=== PATIENT | female | born 1990 | race Caucasian/White ===

== ENCOUNTER 2017-10-03 08:25 | Emergency (ER) | payer MEDICAID, SELFPAY ==
[2017-10-03 08:26] VITALS: BP 160/95; PULSE 84; RESP 28; TEMP 36.6; O2SAT 99; BMI 67.6
--- NOTE | 2017-10-03 08:35 | ED.VISSUMM ---
- ER Visit Summary Date of Service: 10/03/17 Chief Complaint: Abdominal pain History of Present Illness: The patient is a 26 F who presents with abdominal pain. Patient states that she started with pain about an hour ago. It sharp and cramping in the right lower quadrant. It does not radiate. She has had nausea without vomiting. No diarrhea or constipation. Denies any urinary symptoms. She denies any history of fevers. She has never had any abdominal surgeries in the past. She took nothing for this morning. Physical Examination: Vital signs reviewed. Patient's BMI is 67. HEENT exam unremarkable. Heart is regular rate and rhythm without murmurs. Lungs are clear to auscultation. Abdomen is soft with tenderness in the epigastric and right lower quadrant areas. Extremities reveal no edema. Skin exam normal. Neurologic exam normal. Test Results: White blood cell count normal. Hemoglobin 11.8. Potassium 3.4. Urinalysis reveals trace blood. Patient states that she was just recently finished her menstrual cycle. CAT scan without contrast reveals nonvisualization of the appendix. She has mild liver steatosis Emergency Department Course and Treatment: Patient was given morphine and Zofran with resolution of her pain. CAT scan revealed nonvisualization of her appendix but she has no signs of edema or inflammation in that area of her abdomen. Patient will be discharged home. She was given instructions on when to return as well as possibility of early appendicitis. She wishes to go home at this time. I will give her Bentyl and Zofran she will need follow-up with her PCP for reevaluation Treatment Plan: [] Disposition: Discharge Impression: Abdominal pain This note was generated with [employer] dictation software. It may contain incorrect words, spelling, and punctuation that were not noted in review of the chart prior to signing ED Disposition - Plan for ED Patient: Chief Complaint: Abd Pain
[2017-10-03] MEDS: Morphine 4 MG/ML Syringe IV (08:45)
[2017-10-03] MEDS: Ondansetron 4 MG/2 ML Vial IV (08:45)
[2017-10-03 09:01] LABS: Color, Urine Yellow (Yellow); Glucose, Dipstick Normal (Normal); Ketone-Dipstick 5 mg/dl (Negative); Leukocyte Esterase-Dipstick 25 /ul (Negative); Nitrite-Dipstick Negative (Negative); Occult Blood-Urine 250 /ul (Negative); Protein-Dipstick 30 mg/dl (Negative); Specific Gravity, Urine 1.025 (1.002-1.030); Urine Bilirubin Dipstick Negative (Negative); Urine Clarity Sl. Cloudy (Clear); Urine Urobilinogen Normal (Normal)
[2017-10-03 09:01] LABS: Absolute Lymphocyte Count 1.89 X10^3/ul (0.83-4.51); Absolute Neutrophil Count 2.5 X10^3/uL (2.0-7.7); Basophil# 0.03 X10^3/uL; Basophil% 0.6 % (0-1); Eosinophil# 0.07 X10^3/uL; Eosinophils% 1.4 % (0-5); Hemoglobin 11.8 g/dl (12.0-15.0); Lymphocyte # 1.89 X10^3/ul (4.0); Lymphocyte % 38.7 % (19-41); Mean Corp Hgb Conc 32.8 g/gl (32-36); Mean Corpuscular Hgb 30.8 pg (27.0-32.0); Monocyte# 0.42 X10^3/uL; Monocyte% 8.6 % (0-10); Neutrophil # 2.48 X10^3/uL (2.7-7.7); Neutrophil % 50.7 % (47-70); Platelet Count 285 K/mm3 (150-450); RBC Distribution Width CV 12.9 % (11.6-14.6); Red Blood Count 3.83 M/mm3 (4.2-5.4); White Blood Count 4.9 K/mm3 (4.4-11.0)
[2017-10-03 09:02] LABS: ALB/GLOB Ratio 0.8 RATIO (0.9-2.4); AST(SGOT) 19 U/L (15-37); Alanine Aminotransfer ALT/SGPT 33 U/L (13-56); Albumin, Serum 3.5 g/dL (3.2-5.0); Alkaline Phosphatase 66 U/L (45-117); Anion Gap 9 (5-15); BUN 9 mg/dL (7-18); BUN/Creat Ratio 12.5 RATIO (10-20); Calcium,Total 8.6 mg/dL (8.5-10.1); Chloride 106 mmol/L (98-107); Creatinine, Serum 0.72 mg/dL (0.55-1.02); EST Glomerular Filtration Rate 105 mL/min (>60); Est Glom Filt Rate - Afr Amer 127 mL/min (>60); Estimated Creatinine Clearance 121.54 ml/min; Globulin 4.3 g/dL (2.2-4.2); Glucose 97 mg/dL (74-106); Lipase 133 U/L (73-393); Potassium 3.4 mmol/L (3.5-5.1); Pregnancy, Serum, hCG Quali. NEGATIVE Negative (0-9 Nonpreg); Protein, Total 7.8 g/dL (6.4-8.2); Sodium Level 141 mmol/L (136-145)
[2017-10-03 09:04] LABS: POSITIVE COUNT NO; POSITIVE DIFFERENTIAL NO; POSITIVE MORPHOLOGY NO
--- NOTE | 2017-10-03 09:11 | CT_ITS ---
STUDY: CT ABDOMEN AND PELVIS WITHOUT CONTRAST REASON FOR EXAM: Female, 26 years old. RLQ PAIN STARTING TODAY. RADIATION DOSAGE (If Supplied By Facility): CTDIvol = ( 34.45 ) mGy, DLP = ( 1971.26 ) mGycm TECHNIQUE: Transaxial images were obtained from the dome of the diaphragm to the symphysis pubis without oral contrast, and without intravenous contrast. Sagittal and coronal images were reconstructed. Individualized dose optimization techniques were used for this CT. COMPARISON: None. FINDINGS: The visualized lung bases are unremarkable. The visualized portions of the heart are within normal limits. There is decreased attenuation of the liver consistent with steatosis. Normal gallbladder and extrahepatic biliary system. Normal spleen. Normal pancreas. Normal bilateral adrenal glands. Normal right kidney. Normal left kidney. Normal visualized stomach. Normal small intestine. Normal colon. There is non-visualization of the appendix. Normal abdominal aorta. Normal inferior vena cava. Normal retroperitoneum. Normal urinary bladder. There is a small umbilical hernia containing fat. There are diffuse degenerative changes of the visualized lumbar spine. CT/Abdomen/Pelvis without Cont IMPRESSION: Nonvisualization of the appendix. Mild liver steatosis. Electronically Signed: Escobar Thompson MD at 9:44 EDT Tel , Service support ,
[2017-10-03 09:18] LABS: Bacteria 1+ /hpf (None Seen); Mucous, Urine 1+ /hpf (<or=2+); Red Blood Cells-Urine 5-10 SEEN /hpf (0-5); Squamous Epithelial Cells - UA 5-10 SEEN /hpf (5-10); White Blood Cells 0-5 SEEN /hpf (0-5)
--- NOTE | 2017-10-03 10:05 | ED.DEP ---
ED Disposition - Plan for ED Patient: Disposition: Home or Assisted Living Chief Complaint: Abd Pain Instructions: ED Abdominal Pain Unkn Cause Prescriptions: Ondansetron [Zofran Odt] 4 mg PO Q8H PRN PRN #10 tab PRN Reason: Nausea Dicyclomine HCl [Bentyl] 20 mg PO TIDAC #20 cap Referrals: Care Physician,No Primary [Primary Care Provider] -
[2017-10-03 10:23] VITALS: BP 150/90; PULSE 84; RESP 20; O2SAT 96
== END 2017-10-03 10:28 | disposition home or self-care (01) ==
PROVIDERS: Emergency Provider Emergency Medicine
DX: R10.13 Epigastric pain (principal); R10.31 Right lower quadrant pain
CPT/HCPCS: 74176; 80053; 81001; 83690; 84703; 85025; 96374; 96375; 99283; A4216; J2405

== ENCOUNTER 2018-02-02 17:40 | Emergency (ER) | payer MEDICAID, SELFPAY ==
[2018-02-02 17:40] VITALS: BP 167/97; PULSE 115; RESP 20; TEMP 36.1; O2SAT 98; BMI 62.6
--- NOTE | 2018-02-02 17:50 | RAD_ITS ---
STUDY: X-RAY - LEFT ANKLE REASON FOR EXAM: Female, 27 years old. Twisted ankle. TECHNIQUE: view(s) of the ankle. COMPARISON: None. FINDINGS: Normal visualized distal tibia and fibula. Normal medial and lateral malleoli. Normal tibiotalar articulation and ankle mortise. Normal visualized talus and calcaneus. The visualized subtalar, talonavicular, calcaneocuboid and tarsal articulations are normal. There is mild soft tissue swelling. RAD/Ankle min 3 Views IMPRESSION: Soft tissue swelling, otherwise negative ankle. Electronically Signed: Aleksandra Amaya MD at 18:53 EST Tel , Service support ,
--- NOTE | 2018-02-02 18:30 | ED.VISSUMM ---
- ER Visit Summary Date of Service: 02/02/18 Chief Complaint: Left ankle injury History of Present Illness: The patient is a 27 F presents to the emergency department left ankle injury. Patient states she was at work and twisted her ankle about a week ago. She states that it seemed like the pain had improved. Today, she was back at work and the ankle gave out twice. She has had increasing swelling over the lateral ankle. She denies any new trauma. She did take ibuprofen with some improvement. Physical Examination: Exam relatively unremarkable. Patient has tenderness over the lateral malleolus. Florence testing is negative. Pulses are normal. She has no pain at the proximal fibula. There is no pain in the foot. Test Results: [] Emergency Department Course and Treatment: Plain films were obtained of the ankle. There is no evidence of fracture or dislocation. I do feel that her symptoms are secondary to sprain. Patient was placed in an Aircast. She will given anti-inflammatories. She has decided to not go through with workers comp. She will be given outpatient referral for a new primary care. She will be discharged home. Treatment Plan: [] Disposition: Discharge Impression: Left ankle sprain This note was generated with [employer] dictation software. It may contain incorrect words, spelling, and punctuation that were not noted in review of the chart prior to signing ED Disposition - Plan for ED Patient: Chief Complaint: Lower Extremity Injury Instructions: ED Sprain Ankle W X Ray Prescriptions: Naproxen [Naprosyn] 500 mg PO BID PRN #20 tab Referrals: Peña Smalls DO [NON CLINICAL AFFILIATE] -
--- NOTE | 2018-02-02 18:46 | ED.RN ---
pt started as workers comp and declined to follow through. registration aware
[2018-02-02 18:58] VITALS: PULSE 120; RESP 18; O2SAT 97
== END 2018-02-02 18:59 | disposition home or self-care (01) ==
PROVIDERS: Emergency Provider Emergency Medicine
DX: S93.402A Sprain of unspecified ligament of left ankle, initial encounter (principal); E66.9 Obesity, unspecified; X50.1XXA Overexertion from prolonged static or awkward postures, initial encounter; Y93.89 Activity, other specified; Y92.89 Other specified places as the place of occurrence of the external cause; Y99.0 Civilian activity done for income or pay
CPT/HCPCS: 73610; 99282

== ENCOUNTER 2018-03-26 15:18 | Emergency (ER) | payer MEDICAID, SELFPAY ==
[2018-03-26 15:19] VITALS: BP 143/100; PULSE 92; RESP 14; TEMP 36.5; O2SAT 99; BMI 62.6
--- NOTE | 2018-03-26 15:34 | ED.VISSUMM ---
- ER Visit Summary Date of Service: 03/26/18 Chief Complaint: Left ankle injury History of Present Illness: The patient is a 27 F presenting with left ankle injury. Patient slipped while walking into [facility] and twisted her left ankle. She did not hit her head or lose consciousness. She has pain to her left ankle. She denies other injuries. Physical Examination: Vitals are stable. Patient is afebrile. Alert no acute distress. HEENT exam is unremarkable. Neck is nontender Lungs are clear and equal bilaterally. Heart is regular rate and rhythm. Extremities left ankle swelling with lateral tenderness. No proximal fibula tenderness. No fifth metatarsal tenderness. No Achilles tendon tenderness. Skin is warm and dry. No focal neurologic deficit. Remainder of exam is unremarkable. Emergency Department Course and Treatment: Patient was given fentanyl per EMS. Left ankle x-ray shows soft tissue swelling. She is given an Aircast. She is advised to ice and elevate. Advised to follow-up with her primary care physician. Advised return to ED if worsening complaints. Disposition: Discharge Impression: Left ankle sprain This note was generated with [employer] dictation software. It may contain incorrect words, spelling, and punctuation that were not noted in review of the chart prior to signing ED Disposition - Plan for ED Patient: Disposition: Home or Assisted Living Chief Complaint: Lower Extremity Injury Instructions: ED Sprain Ankle W X Ray Prescriptions: RX: Naproxen [Naprosyn] 500 mg PO BID PRN #20 tablet Referrals: Navjot Sanchez III, MD [STAFF PHYSICIAN] -
--- NOTE | 2018-03-26 15:50 | RAD_ITS ---
STUDY: X-RAY - LEFT ANKLE REASON FOR EXAM: Female, 27 years old. Pain following a fall. TECHNIQUE: 3 view(s) of the ankle. COMPARISON: None. FINDINGS: Normal visualized distal tibia and fibula. Normal medial and lateral malleoli. Normal tibiotalar articulation and ankle mortise. Normal visualized talus and calcaneus. Questionable old avulsion of the posterior dorsal aspect of the tarsal navicular bone. The visualized subtalar, talonavicular, calcaneocuboid and tarsal articulations are normal. Diffuse soft tissue swelling. RAD/Ankle min 3 Views IMPRESSION: Diffuse soft tissue swelling. Electronically Signed: Heron Bettencourt MD at 16:02 EST , Service support ,
--- NOTE | 2018-03-26 16:12 | ED.DEP ---
ED Disposition - Plan for ED Patient: Chief Complaint: Lower Extremity Injury Instructions: ED Sprain Ankle W X Ray Prescriptions: Naproxen [Naprosyn] 500 mg PO BID PRN #20 tablet Referrals: Navjot Sanchez III, MD [STAFF PHYSICIAN] -
[2018-03-26] MEDS: HYDROcodone Bitartrate/Apap 5/325 Tablet PO (16:33)
== END 2018-03-26 16:54 | disposition home or self-care (01) ==
LOC: ED 16:27
PROVIDERS: Emergency Provider Emergency Medicine
DX: S93.492A Sprain of other ligament of left ankle, initial encounter (principal); X50.1XXA Overexertion from prolonged static or awkward postures, initial encounter; Y93.01 Activity, walking, marching and hiking; Y92.481 Parking lot as the place of occurrence of the external cause; Y99.8 Other external cause status
CPT/HCPCS: 73610; 99285

== ENCOUNTER → 2018-05-13 16:13 | Outpatient (CLI) | payer OTHER, SELFPAY ==
--- NOTE | 2018-05-13 16:19 | MRI_ITS ---
HISTORY: ANKLE SPRAIN C/O PAIN LATERALLYinjury 1 1/2 months ago TECHNIQUE: Multiplanar and multisequence MR images of the left ankle. IV Contrast dosage and agent: COMPARISON: Left ankle x-ray 03/26/2018 FINDINGS: The peroneal and posterior tibial tendons are intact. Small tendon sheath fluid collections in the physiologic range of the posterior flexor and anterior extensor tendons. No tenosynovitis. Normal Achilles. The tibiofibular, talofibular, and deltoid ligaments appear intact. No fracture, avascular necrosis, or marrow edema. Small benign-appearing bone island of the talus. The talar dome is intact. No loose body or osteochondral defects. No joint effusion. The subtalar joint is preserved. No subluxation or widening of the ankle mortise. Generalized and nonspecific superficial edema of the ankle and lower leg. Superficial edema is more pronounced laterally MRI/Lower Ext Joint Only (Routine) IMPRESSION: 1. Generalized and nonspecific superficial edema of the left ankle and lower leg. Venous stasis disease would be included in the differential. 2. Otherwise negative exam. No tendinopathy or ligamentous injury seen. No bony abnormality. at 0314 Reported and signed by: Krishna Singh MD Electronically Signed: Krishna Singh, at 3:13 EDT Tel , Service support ,
--- NOTE | 2018-05-13 16:20 | MRI_ITS ---
HISTORY: LEFT FOOT SPRAIN C/O PAIN LATERALLYinjury 1 1/2 months ago TECHNIQUE: Multiplanar and multisequence MR images of the left foot. IV Contrast dosage and agent: None COMPARISON: None FINDINGS: No fracture, marrow edema, or avascular necrosis. Several small benign-appearing bone islands involving the talus and navicular. Joint spaces appear preserved. No tendinopathy or tenosynovitis. Normal Achilles and plantar fascia. The forefoot is unremarkable. No Busch neuroma. Nonspecific superficial soft tissue swelling of left ankle. MRI/Lower Ext/No Jt/w/o IMPRESSION: 1. Nonspecific superficial soft tissue swelling of the left ankle. Otherwise negative exam. No bony abnormality or tendinopathy. at 0323 Reported and signed by: Krishna Singh MD Electronically Signed: Krishna Singh, at 3:21 EDT Tel , Service support ,
== END ==
PROVIDERS: Referring Provider Family Medicine; Visit Provider Family Medicine
DX: S93.402A Sprain of unspecified ligament of left ankle, initial encounter (principal); S93.602A Unspecified sprain of left foot, initial encounter
CPT/HCPCS: 73718; 73721

== ENCOUNTER 2021-02-16 13:44 | Emergency (ER) | payer MEDICAID, SELFPAY ==
[2021-02-16 13:45] VITALS: BP 128/79; PULSE 101; RESP 24; TEMP 35.8; O2SAT 93; BMI 84.7
[2021-02-16 13:55] VITALS: O2SAT 93
--- NOTE | 2021-02-16 14:10 | EDS_ITS ---
HPI HPI - URI History of Present Illness Chief Complaint: Shortness of Breath Detail of Chief Complaint: Cough Informant: patient Onset/Context/Timing Onset: Weeks Context: Gradual Onset Timing: Continuous Current Severity: Mild Maximum Severity: Mild Associated Symptoms Associated Symptoms: Positive for Nonproductive cough Narrative Narrative: 30-year-old female past medical history of morbid obesity. Says she has had a nonproductive cough for the last 1-1/2 weeks. Initially had subjective fever and chills but has since resolved. Has had some mild loose stools. She is unvaccinated. Prior similar symptoms: No Recent Illness/Hospitalization: No ROS ROS ED ROS Narrative Cough. Fever and chills resolved. Loose stools. Review of Systems ROS Unobtainable: Denies due to encephalopathy Constitutional Constitutional ED: Reports chills, fever(s) and subjective Eyes Eyes: Denies change in vision ENT ENT ED: Denies ear pain Cardiovascular Cardiovascular: Denies chest pain Respiratory/Chest Respiratory/Chest: Reports cough and dyspnea Gastrointestinal Gastrointestinal: Reports diarrhea; Denies abdominal pain, nausea or vomiting Genitourinary Genitourinary ED: Denies dysuria Musculoskeletal Musculoskeletal: Denies myalgias Integumentary Denies rash Neurologic Neurologic: Denies headache(s) Psychiatric Psychiatric: Denies depression Endocrine Endocrinology: Denies polyuria Hematologic/Lymphatic Hematologic/Lymphatic: Denies easy bruising Allergic/Immunologic Allergic/Immunologic ED: Denies urticaria PFSH PFSH Home Medications naproxen 500 mg PO BID PRN #20 tab 02/02/18 [Rx Last Taken Unknown] naproxen 500 mg PO BID PRN #20 tab 03/26/18 [Rx Last Taken Unknown] Allergy/AdvReac Type Severity Reaction Status Date / Time No Known Allergies Allergy Verified 02/16/21 13:44 Social History Smoking Status: Never smoker EXAM Physical Exam Narrative Exam Narrative: 22-year-old female no acute distress vital signs stable afebrile. Pulse ox 93% on room air no hypoxia. HEENT exam unremarkable. Posterior pharynx moist and pink. Neck nontender no lymphadenopathy. Lungs clear to auscultation bilaterally. Heart regular rhythm no murmur. Abdomen morbidly obese with soft nontender normal bowel sounds no peritoneal signs. Moving all 4 extremities. Calves nontender without edema. Const Vital Signs: 02/16/21 13:45 02/16/21 14:37 Temperature 96.5 F L Temperature Source Oral Pulse Rate 101 H Respiratory Rate 24 H Respiratory Effort Short of Breath Respiratory Pattern Normal Blood Pressure 128/79 H Blood Pressure Mean 95 Pulse Ox 93 Oxygen Delivery Method Room Air Room Air Positive well nourished, well developed and obese; Negative for cachectic or contractures General Appearance ED: well developed and NAD; Negative for cachectic, co ntractures, cyanotic, diaphoretic or pallor Nutritional Appearance: obese; Negative for cachectic HEENT Reports moist mucous membranes normocephalic and atraumatic; Negative for scalp tenderness Face and Sinus: Negative for sinus tenderness, maxillary instability or facial tenderness External Ear: external ears normal Eyes PERRL and EOMs intact bilaterally General Eye ED: Negative for pale conjunctiva or scleral icterus Neck no lymphadenopathy, supple, no meningeal signs and no JVD General: Negative for anterior neck swelling or lymphadenopathy Resp normal respiratory effort and clear to auscultation bilaterally Auscultation: Negative for rales, rhonchi or wheezes Cardio S1 normal heart sound, S2 normal heart sound and no murmurs Rate: regular rate Rhythm: regular rhythm GI non-tender, non-distended and no masses Inspection: Negative for abdominal distention Auscultation: normoactive bowel sounds; Negative for hyperactive bowel sounds Palpation: soft; Negative for tender or guarding Back/Spine no CVA tenderness and normal ROM General Back: Negative for CVA tenderness Cervical Spine: Negative for cervical spine tenderness Thoracic Spine / Upper Back: Negative for thoracic spinal tenderness Extremity normal to inspection and full ROM General Extremety ED: Negative for cyanosis or tenderness General Extremity: Negative for cyanosis Neuro oriented x3 Sensorium / Orientation: alert, oriented to person, oriented to place and oriented to time; Negative for orientation impaired, lethargic or stuporous Motor Exam: strength 5/5 throughout Psych mental status grossly normal Mood & Affect: Negative for depressed or tearful Skin General Skin Exam: Negative for jaundice or pallor Lesions: no lesions Rashes: no rashes MDM MDM MDM Narrative Medical decision making narrative: 30-year-old morbidly obese female with a 1- 1/2 weeks of a cough. Chest x-ray and Covid test being obtained. Clinically she does not look septic or toxic. Her vital signs are stable and she is not hypoxic. Repeat exam patient is doing well at 5:07 PM. Exam is unchanged. We went over her chest x-ray and Covid test being negative. She will be discharged home with outpatient follow-up as needed. Return if worse Lab Data Attestation: I reviewed the patient's lab results. Labs: Rapid Covid antigen is negative. Chest x-ray shows chronic changes no acute process. Radiography Diagnostic Testing: Clinical Impression(s) from Imaging Studies Chest X-Ray 02/16/21 14:20 IMPRESSION: Borderline cardiomegaly. Electronically Signed: Heron Bettencourt MD at 14:41 EST , Service support , Chest x-ray, portable, single view interpreted by myself the radiologist shows no acute abnormality. No infiltrates. No Covid pneumonitis. No bacterial pneumonia. Discharge Plan Triage Chief Complaint: Shortness of Breath ED Provider: Alex Grijalva Dx/Rx/DC Orders Clinical Impression: Viral URI Instructions: ED URI, Viral, No Abx (Adult) Prescriptions: No Action naproxen 500 MG tablet 500 mg PO BID PRN Qty: 20 RF: 0 naproxen 500 MG tablet 500 mg PO BID PRN Qty: 20 RF: 0 Primary Care Provider: Care Physician,No Primary Referrals: Fabian Pagan MD [STAFF PHYSICIAN] - 1 Week if not improving Care Physician,No Primary [Primary Care Provider] - Activity Restrictions/Additional Instructions: Your chest x-ray was unremarkable. Your Covid test was negative. Plenty of fluids and rest. Follow-up with your doctor or primary care physician if not improving. Disposition Disposition: Home, Self Care
--- NOTE | 2021-02-16 14:20 | RAD_ITS ---
STUDY: X-RAY CHEST REASON FOR EXAM: Female, 30 years old. Severe cough. TECHNIQUE: Single AP portable view of the chest. COMPARISON: None. FINDINGS: The lungs are clear and expanded. There is no demonstrated pleural abnormality. There is borderline cardiomegaly. Normal mediastinum and jorge. Normal visualized pulmonary arteries. Normal visualized aortic arch and descending thoracic aorta. Normal visualized thoracic spine. Normal visualized ribs, clavicles, and shoulders. There is no demonstrated abnormality of the visualized soft tissue structures of the upper abdomen. RAD/Chest 1 View (Portable) IMPRESSION: Borderline cardiomegaly. Electronically Signed: Heron Bettencourt MD at 14:41 EST , Service support ,
[2021-02-16 14:37] VITALS: O2SAT 96
[2021-02-16 17:16] VITALS: PULSE 98; RESP 19; O2SAT 94
== END 2021-02-16 17:18 | disposition home or self-care (01) ==
PROVIDERS: Emergency Provider Emergency Medicine
DX: J06.9 Acute upper respiratory infection, unspecified (principal); E66.01 Morbid (severe) obesity due to excess calories; Z68.45 Body mass index [BMI] 70 or greater, adult; Z28.3 Underimmunization status
CPT/HCPCS: 71045; 87426; 99282

== ENCOUNTER 2024-01-10 16:49 | Emergency (ER) | payer MEDICAID, SELFPAY ==
[2024-01-10 16:50] VITALS: BP 113/95; PULSE 110; RESP 20; TEMP 36.6; O2SAT 96
[2024-01-10 16:53] VITALS: BP 113/95; PULSE 110; RESP 20; TEMP 36.6; O2SAT 96
[2024-01-10] MEDS: Cephalexin 250 MG Capsule 500 MG PO (17:51)
[2024-01-10 18:05] LABS: Bedside Glucose 81 mg/dL (74-106)
[2024-01-10 18:36] VITALS: BP 122/85; PULSE 105; RESP 18; TEMP 36.2; O2SAT 100
== END 2024-01-10 18:51 | disposition home or self-care (01) ==
PROVIDERS: Emergency Provider Emergency Medicine; Visit Provider Emergency Medicine
DX: L03.115 Cellulitis of right lower limb (principal); E66.9 Obesity, unspecified
CPT/HCPCS: 82962; 99282

== ENCOUNTER 2024-01-22 13:38 | Outpatient (RCR) | payer MEDICAID, SELFPAY ==
[2024-01-22 14:03] VITALS: BP 124/86; PULSE 112; RESP 18; TEMP 36.2; BMI 78.2
[2024-01-22 14:27] VITALS: BMI 78.2
--- NOTE | 2024-01-22 16:56 | HP.PCM_ITS ---
History of Present Illness Date of Service: 01/22/24 Chief Complaint: Venous ulceration, cellulitis, chronic venous insufficiency, venous stasis dermatitis, pitting edema, lymphedema - right lower extremity History of Wound: This is a morbidly obese 33-year-old female who presents with a venous ulceration and cellulitis involving her right lower extremity. The patient also suffers from chronic venous insufficiency, and venous stasis dermatitis in the right lower extremity. She also has pitting edema and lymphedema in her lower extremities bilaterally. According to the patient, she has had the ulceration and dermatitic changes in her right lower extremity for approximately 3 months. Only recently did she seek medical attention. She was seen and evaluated in the [facility] Emergency Department on January 10, 2024, where she was placed on Keflex 500 mg p.o. twice daily x 10 days in treatment for right lower extremity cellulitis. She is in the final phase of her antibiotic course. The patient was evaluated at the [facility] on January 17, 2024, where she was referred for definitive management at the [facility]. At her visit to the [facility], betadine was applied to her right lower extremity ulceration, in addition to an Dwight wrap. The patient is morbidly obese, with a BMI of 78.2. 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 She lives alone, with very few resources. She does not have a bed, and sleeps in a recliner. She states that her recliner is broken, and that her legs cannot be elevated. The patient lives alone, and does not have family or friends to assist her with her daily needs. She denies a history of significant medical problems such as myocardial infarction, congestive heart failure, diabetes mellitus, pulmonary disease, renal disease, thyroid disease, and cerebrovascular disease. She denies prior surgical procedures. She does not use tobacco products. [facility] Medical History Morbid obesity with BMI of 70 and over, adult Venous stasis dermatitis of right lower extremity Venous ulcer of right leg Cellulitis of right leg 1+ pitting edema Lymphedema of both lower extremities Bilateral lower extremity edema Home Medications ?Medication ?Instructions ?Recorded ?Last Taken ?Type naproxen 500 mg tablet 500 mg PO BID PRN #20 tabs 02/02/18 Unknown Rx cephalexin 500 mg capsule 500 mg PO Q6 #40 CAPSULES 01/10/24 Unknown Rx Allergy/AdvReac Type Severity Reaction Status Date / Time No Known Allergies Allergy Verified 02/16/21 13:44 no surgical history Social History Smoking Status: Never smoker Vital Signs Vital Signs Vital Signs: 01/22/24 14:03 Temperature 97.1 F L Temperature Source Temporal Pulse Rate 112 H Respiratory Rate 18 Blood Pressure 124/86 H Blood Pressure Mean 98 Blood Pressure Source Monitor Blood Pressure Position Sitting Blood Pressure Location Left Arm Weight Weight: 500 lb Body Mass Index (BMI) 78.2 Physical Exam Const alert, oriented x3, no apparent distress, no limitations and well nourished Constitutional Narrative: The patient is morbidly obese, with a BMI of 78.2 General Appearance: cooperative, comfortable, well kempt and well developed Orientation / Consciousness: awake, oriented to person, oriented to place and oriented to time Exam Limitations: no limitations HEENT normocephalic, head/scalp atraumatic and hearing grossly normal bilaterally Head and Scalp: normal to inspection, normocephalic and atraumatic Face and Sinus: normal facial exam Nose: external nose normal External Ear: external ears normal Eyes EOMs intact bilaterally General Eye: normal appearance of both eyes Neck full ROM Resp normal respiratory effort, normal air movement, no retractions and no use of ac cessory muscles Effort and Inspection: able to speak in complete sentences GI Inspection: pannus present Extremity no calf tenderness General Extremity: Negative for clubbing or cyanosis Skin Wound Narrative: Edema and lymphedema are noted in the lower extremities bilaterally. 1+ pitting edema is noted bilaterally. A resolving cellulitis appears in the distal right lower extremity, associated with diffuse venous stasis dermatitis and a large venous ulceration. These findings are noted in the supramalleolar area. A large area of sloughing epidermis is noted in the right supramalleolar area, as well as tayla ulceration, which is large and clustered. There is a large amount of nonviable and necrotic tissue in this area. The borders are irregular. The ulceration extends through all layers of the dermis and into the subcutaneous tissues primarily, though there are areas of more superficial ulceration. Mild callie-ulcer erythema is noted, consistent with a resolving cellulitis. Neuro oriented x3, CN's II-XII intact bilaterally, moves all extremities, no focal motor deficits and no sensory deficits noted Sensorium / Orientation: awake, alert, oriented to person, oriented to place and oriented to time Cranial Nerves: CN normal except as noted Speech: speech normal Psych Appearance: grossly normal and appropriate Attitude: calm Activity / Motor Behavior: appropriate eye contact Speech: normal speech Mood & Affect: euthymic mood Thought Process: normal thought process Thought Content: normal thought content Attention / Concentration: attention grossly intact Debridement Note Debridement Note Wound debrided: Distal right lower extremity venous ulceration Laterality: Right Type of Debridement: Excisional debridement Anesthesia Used: 5% Lidocaine Gel and Cetacaine Depth: Down to and including healthy tissue and in the subcutaneous layer Percentage of wound debrided: 100 Instrument Used: 5mm curette Tissue Removed: Epidermal slough, necrotic and nonviable tissue, bioburden Severity: Fat Layer Exposed Amount of bleeding with debridement: Mild Bleeding Controlled with: Compression and gauze Patient tolerated procedure: Patient tolerated procedure well Post-Debridement Measurements and Additional Note: Post-Debridement Measurements/Treatment - Nurse 1 - General Ulcer Assessment Start: 01/22/24 14:02 Freq: Status: Active Protocol: AILYN.ANIT Activity Type Activity Date Activity User E-sign Co-sign Detail Recorded Client Recorded Date Recorded By Document 01/22/24 14:03 ML [id number] 01/22/24 14:07 ML Document 01/22/24 14:27 ML [id number] 01/22/24 14:32 ML 01/22/24 01/22/24 14:03 14:27 - Today's Visit Information Type of service Initial Visit Arrival Mode Ambulatory,Cane Transfer Assistance None Patient Identification Verified (Name & Yes ) Patient Requires Transmission-Based No Precautions Height and Weight Height 5 ft 7 in Weight 500 lb Weight in Pounds 500.0 lbs Body Mass Index (BMI) 78.2 78.2 BMI Classification Obese Obese BSA - Tammy 2.98 Vital Signs Temperature (97.8 F-99.1 F) 97.1 F L Temperature Source Temporal Pulse Rate (60-100) 112 H Pulse Location Monitor Respiratory Rate (12-18) 18 Respiratory rate source Observation Blood Pressure (90/60-120/80) 124/86 H Blood Pressure Mean 98 Source Monitor Position Sitting Blood Pressure Location Left Arm Pain Scale: 0-10 Numeric Is Patient Pain Free? No No RLE -Description Burning -Intensity 7 -Duration (hours) Acute -Pain Behavior Withdrawal from Touch -Pain Aggravating Factors Exercise/ Activity -Alleviating Factors/Interventions None Lower Extremity Assessment/ Foot Assessment/ Toe Nail Assessment Right -Posterior Tibial Palpable Yes -Posterior Tibial Doppler Multiphasic -Dorsalis Pedis Palpable Yes -Dorsalis Pedis Doppler Multiphasic -Extremity Color Normal -Hair Growth on Legs Yes -Hair Growth on Toes No -Temperature of Extremity Warm -Capillary Refill Less than 3 Seconds -Dependent Rubor No -Blanched when Elevated No -Lipodermatosclerosis No -Other Deformity No -Prior Foot Ulcer No -Charcot Joint No -Prior Amputation No -Thick Yes -Discolored Yes -Deformed Yes -Improper Length & Hygeine No Left -Posterior Tibial Palpable Yes -Posterior Tibial Doppler Multiphasic -Dorsalis Pedis Palpable Yes -Dorsalis Pedis Doppler Multiphasic -Extremity Color Normal -Hair Growth on Legs Yes -Hair Growth on Toes No -Temperature of Extremity Warm -Capillary Refill Less than 3 Seconds -Dependent Rubor No -Blanched when Elevated No -Lipodermatosclerosis No -Other Deformity No -Prior Foot Ulcer No -Charcot Joint No -Prior Amputation No -Thick Yes -Discolored Yes -Deformed Yes -Improper Length & Hygeine No Neuropathy Assessment Feet - Top Side and Bottom <Entered> (a) Communication Assessment Preferred language [place] Loans Consultant Required No Able to Read Yes Able to Write Yes Communication Tools None Caregiver Communication Skills No Impairment Impairment Right Hearing Abillity Normal Left Hearing Abillity Normal Visual Assistive Devices Glasses Teaching Assessment Preferences Verbal,Written, Demonstration Barriers to Learning Unable to Comprehend Readiness To Learn Good Willingness to Engage in Self Management Low Activies Readiness to Engage in Self Management Low Activities Anxiety Level Anxious Cooperation Cooperative Perception Coherent Interest in Health Problem Asks Questions Education Importance Acknowledges Need Does Patient Smoke tobacco or other No substances Smoking Status Never smoker Is Patient Diabetic No Functional Assessment Recent Decline in Ability to Perform Denies Any Declines Assistive Device With Patient No Culture/Jew/Food Products Sales Representative Cultural/Jew Needs that may affect No Treatment Plan Would you allow our hospital waste paper hammermill operator to No meet you for the purpose of spiritual/ emotional support? Food Products Sales Representative to contact place of nondenominational No Teaching: Wound Center *Welcome to the Wound Center -Person Taught Patient -Teaching Method Discussion -Response to teaching Verbalize Understanding (a) 1 - + throughout WC - Nurse 1 - General Ulcer Measurement Start: 01/22/24 14:02 Freq: Status: Active Protocol: Activity Type Activity Date Activity User E-sign Co-sign Detail Recorded Client Recorded Date Recorded By Document 01/22/24 14:08 ML [id number] 01/22/24 14:18 ML Document 01/22/24 14:27 ML [id number] 01/22/24 14:32 ML 01/22/24 01/22/24 14:08 14:27 Wound Center Nurse 1 right lower leg circumferential -Current Size (cm) - Length 12 -Current Size (cm) - Width 27 -Current Size (cm) - Depth 0.1 -Total Square Cm 324 -Exudate Amt Large -Exudate Type Serosanguineous -Wound Margin Distinct, Outline Attached -Granulation Amt Large (67-100%) -Slough/Fibrin Yes -Necrosis Amt Large (67-100%) -Necrotic Tissue Type Adherent Slough -Texture (Callie-wound Skin Appearance) Assessed, Excoriation, Rash -Moisture (Callie-wound Skin Appearance) Assessed -Color (Callie-wound Skin Appearance) Assessed -Temperature (Callie-wound Skin No Abnormality Appearance) (Pt Warm) -Tenderness on Palpation (Callie-wound Yes Skin Appearance) -Ulcer Cleansing Soap and Water -Foul Odor after Cleansing Yes -Anesthetic Used 4% Lidocaine Solution Lower Limb Edema Present Yes Right Calf (cm) 74.2 74.2 Right Ankle (cm) 34 34 Left Calf (cm) 63.5 63.5 Left Ankle (cm) 40.5 Point of Measurement (cm from the medial 40.5 instep) - Nurse 2 - General Ulcer CM Notes Start: 01/22/24 14:02 Freq: Status: Active Protocol: Activity Type Activity Date Activity User E-sign Co-sign Detail Recorded Client Recorded Date Recorded By Document 01/22/24 14:51 DS [id number] 01/22/24 15:22 DS 01/22/24 14:51 Wound Center Nurse 2 right lower leg circumferential -Time 14:50 -Correct Patient Yes -Correct Side, Site, Position Yes -Correct Procedure Yes -Procedure Performed Yes -Type of Procedure Debridement -Clinical Debridement Subcutaneous -Tissue Removed Subcutaneous -Post Debridement (cm) - Length 9.2 -Post Debridement (cm) - Width 28 -Post Debridement (cm) - Depth 0.1 -Total Square (Post) (cm) 257.6 -Area of Debridement (cm) - Length 9.2 -Area of Debridement (cm) - Width 28 -Total Square (Area) (cm) 257.6 -Tunneling No -Undermining/Tunneling No -Circular Undermining No -Wound/Ulcer Outcome Not Healed -Ulcer Cleansing Rinsed/ Irrigated with Saline -Bioengineered Tissue No -Bleeding Controlled with Pressure -Treatment Response Procedure Tolerated Well -Debridement - Subq, 1st 20sq cm Yes -Debridement, SubQ, ea addt'l 20sq cm 12 or part thereof Pain Scale: 0-10 Numeric Is Patient Pain Free? No RLE -Description Sharp,Burning -Intensity 8 -Duration (hours) Chronic -Pain Aggravating Factors Debridement -Alleviating Factors/Interventions Will continue to monitor, Emotional Support - Nurse 3 - General Ulcer D/C NN Start: 01/22/24 14:02 Freq: Status: Active Protocol: Activity Type Activity Date Activity User E-sign Co-sign Detail Recorded Client Recorded Date Recorded By Document 01/22/24 16:01 [id number] 01/22/24 16:02 01/22/24 16:01 Wound Care Center Nurse 3 right lower leg circumferential -Ulcer Cleansing Wound Cleanser -Primary Dressing Applied Optilok 8x12 -Optilok 8x12 1 Right -Multi-Layered Wrap Application Unna Boot - Right ($) Treatment Response Procedure Tolerated Well Pain Scale: 0-10 Numeric Is Patient Pain Free? Yes WC - Visit Discharge Discharge Condition Stable Ambulatory Status Ambulatory,Cane Transportation Private Auto Medication Reconcilliation completed & No provided to patient/care provider Clinical Summary of Care Provided Yes Charges/Coding Multi Select Codes Visit Charges Office Visit/Consults: 76126 OV L4 New 45 min Integumentary Integumentary CPT Codes: 89224 Crys subq tissue 20 sq cm/< (04935 x 1; 54181 x 12) Assessment/Plan Assessment/Plan (1) Venous ulcer of right leg: CODE(S): I83.019 - Varicose veins of right lower extremity with ulcer of unspecified site; L97.919 - Non-pressure chronic ulcer of unspecified part of right lower leg with unspecified severity (2) Cellulitis of right leg: CODE(S): L03.115 - Cellulitis of right lower limb (3) Venous stasis dermatitis of right lower extremity: CODE(S): I87.2 - Venous insufficiency (chronic) (peripheral) (4) Bilateral lower extremity edema: CODE(S): R60.0 - Localized edema (5) Lymphedema of both lower extremities: CODE(S): I89.0 - Lymphedema, not elsewhere classified (6) 1+ pitting edema: CODE(S): R60.9 - Edema, unspecified (7) Morbid obesity with BMI of 70 and over, adult: CODE(S): E66.01 - Morbid (severe) obesity due to excess calories; Z68.45 - Body mass index [BMI] 70 or greater, adult PLAN: Plan This is a 33-year-old morbidly obese female who presented with a large venous ulceration in her distal right lower extremity, in the supramalleolar area. It is associated with a large area of venous stasis dermatitis. The patient is in the final phase of oral Keflex, which was prescribed at the time of the patient's recent emergency Department visit in treatment for cellulitis. The patient's BMI is 78.2. She denies significant other medical problems, and she is not a smoker. A lengthy discussion has been undertaken with the patient regarding the measures appropriate to the management of her venous disease, which is suspected to be the etiology of her presenting symptoms and manifestations. Weight loss has been recommended, though not likely to be of major impact in the short-term. She has been advised to elevate her lower extremities is much as possible, which is to be implemented to heart level, or higher, as much as possible. She has been encouraged to sleep on a flat mattress at night. She does not currently have a bed at her apartment, and measures will be undertaken to assist her in procuring a bed. Social agencies may be of benefit. She has been encouraged to elevate her lower extremities during both nighttime and daytime hours. Prolonged idle standing and sitting has been discouraged. Activity has been encouraged. The benefits of implementing the calf muscle pumps have been explained. We are to initiate compression to the right lower extremity by means of a multilayer Unna boot compression wrap. The patient is to return in 3 days for a replacement of the Unna boot compression wrap. Because of the holiday week, special provisions have been made for nurse staffing. Because the patient does not have family members or friends to assist in her management, efforts will be made to obtain assistance, perhaps by home health nursing care. The patient has been instructed to finish her course of Keflex 500 mg p.o. twice daily. She will return in 1 week for reevaluation. Total time:
--- NOTE | 2024-01-23 08:39 | WC ---
PHOTO 01/22/24 SOLO JACINTO
[2024-01-25 08:56] VITALS: BP 117/73; PULSE 96; RESP 18; TEMP 36.8
== END 2024-01-26 23:59 | disposition home or self-care (01) ==
LOC: WC 13:38
PROVIDERS: PCP Family Medicine; Referring Provider Family Medicine; Visit Provider Surgery
DX: I83.019 Varicose veins of right lower extremity with ulcer of unspecified site (principal); L97.912 Non-pressure chronic ulcer of unspecified part of right lower leg with fat layer exposed; E66.01 Morbid (severe) obesity due to excess calories; Z68.45 Body mass index [BMI] 70 or greater, adult; L03.115 Cellulitis of right lower limb; R60.0 Localized edema; I83.91 Asymptomatic varicose veins of right lower extremity; I89.0 Lymphedema, not elsewhere classified; G62.9 Polyneuropathy, unspecified; I87.2 Venous insufficiency (chronic) (peripheral)
CPT/HCPCS: 11042; 11045; 29580; 99213; G0463

== ENCOUNTER 2024-02-26 09:30 | Outpatient (RCR) | payer MEDICAID, SELFPAY ==
[2024-01-27 00:57] VITALS: BP 117/73; PULSE 96; RESP 18; TEMP 36.8; BMI 78.2
[2024-01-29 14:11] VITALS: BP 157/80; PULSE 87; RESP 18; TEMP 36.4; BMI 78.2
--- NOTE | 2024-01-29 16:56 | PCM.WC.HP ---
History of Present Illness Date of Service: 01/29/24 Chief Complaint: Venous ulceration, cellulitis, chronic venous insufficiency, venous stasis dermatitis, pitting edema, lymphedema - right lower extremity History of Wound: This is a morbidly obese 33-year-old female who presented with a venous ulceration and cellulitis involving her right lower extremity. The patient also suffers from chronic venous insufficiency, and venous stasis dermatitis in the right lower extremity. She also has pitting edema and lymphedema in her lower extremities bilaterally. According to the patient, she had the ulceration and dermatitic changes in her right lower extremity for approximately 3 months. Only recently did she seek medical attention. She was seen and evaluated in the [facility] Emergency Department on January 10, 2024, where she was placed on Keflex 500 mg p.o. twice daily x 10 days in treatment for right lower extremity cellulitis. She is in the final phase of her antibiotic course. The patient was evaluated at the [facility] on January 17, 2024, where she was referred for definitive management at the [facility]. At her visit to the [facility], betadine was applied to her right lower extremity ulceration, in addition to an Dwight wrap. The patient is morbidly obese, with a BMI of 78.2. 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 She lives alone, with very few resources. She does not have a bed, and sleeps in a recliner. She states that her recliner is broken, and that her legs cannot be elevated. The patient lives alone, and does not have family or friends to assist her with her daily needs. She denies a history of significant medical problems such as myocardial infarction, congestive heart failure, diabetes mellitus, pulmonary disease, renal disease, thyroid disease, and cerebrovascular disease. She denies prior surgical procedures. She does not use tobacco products. [facility] Medical History Morbid obesity with BMI of 70 and over, adult Venous stasis dermatitis of right lower extremity Venous ulcer of right leg Cellulitis of right leg 1+ pitting edema Lymphedema of both lower extremities Bilateral lower extremity edema Home Medications ?Medication ?Instructions ?Recorded ?Last Taken ?Type naproxen 500 mg tablet 500 mg PO BID PRN #20 tabs 02/02/18 Unknown Rx cephalexin 500 mg capsule 500 mg PO Q6 #40 CAPSULES 01/10/24 Unknown Rx Allergy/AdvReac Type Severity Reaction Status Date / Time No Known Allergies Allergy Verified 02/16/21 13:44 Surgical History no surgical history Social History Smoking Status: Never smoker Vital Signs Vital Signs Vital Signs: 01/29/24 14:11 Temperature 97.5 F L Temperature Source Temporal Pulse Rate 87 Respiratory Rate 18 Blood Pressure 157/80 H Blood Pressure Mean 105 Blood Pressure Source Monitor Blood Pressure Position Semi-Fowlers Blood Pressure Location Left Arm Weight Weight: 500 lb Body Mass Index (BMI) 78.2 Physical Exam Const alert, oriented x3, no apparent distress, no limitations and well nourished Constitutional Narrative: The patient is morbidly obese, with a BMI of 78.2 General Appearance: cooperative, comfortable, well kempt and well developed Orientation / Consciousness: awake, oriented to person, oriented to place and oriented to time Exam Limitations: no limitations HEENT normocephalic, head/scalp atraumatic and hearing grossly normal bilaterally Head and Scalp: normal to inspection, normocephalic and atraumatic Face and Sinus: normal facial exam Nose: external nose normal External Ear: external ears normal Eyes EOMs intact bilaterally General Eye: normal appearance of both eyes Neck full ROM Resp normal respiratory effort, normal air movement, no retractions and no use of accessory muscles Effort and Inspection: able to speak in complete sentences GI Inspection: pannus present Extremity no calf tenderness General Extremity: Negative for clubbing or cyanosis Skin Wound Narrative: Edema and lymphedema are noted in the lower extremities bilaterally. 1+ pitting edema is noted bilaterally. Cellulitis in the right lower extremity appears to have resolved. Venous stasis dermatitis and venous ulcerations persist in the gaiter area of the right lower extremity. There is an ulceration noted anteriorly, and 1 posteriorly. The dimensions of each are documented elsewhere. There has been significant improvement in the dermatitis and the nonviable, sloughing epidermis in this area. The ulcerations extend through all layers of the dermis and into the subcutaneous tissues primarily, though there are areas of more superficial ulceration. There is evidence of healthy, pink granulation tissue beginning to appear. Neuro oriented x3, CN's II-XII intact bilaterally, moves all extremities, no focal motor deficits and no sensory deficits noted Sensorium / Orientation: awake, alert, oriented to person, oriented to place and oriented to time Cranial Nerves: CN normal except as noted Speech: speech normal Psych Appearance: grossly normal and appropriate Attitude: calm Activity / Motor Behavior: appropriate eye contact Speech: normal speech Mood & Affect: euthymic mood Thought Process: normal thought process Thought Content: normal thought content Attention / Concentration: attention grossly intact Debridement Note Debridement Note Wound debrided: Distal right lower extremity venous ulcerations -anterior and posterior Laterality: Right Type of Debridement: Excisional debridement Anesthesia Used: 5% Lidocaine Gel and Cetacaine Depth: Down to and including healthy tissue and in the subcutaneous layer Percentage of wound debrided: 100 Instrument Used: 5mm curette Tissue Removed: Epidermal slough, nonviable tissue, bioburden Severity: Fat Layer Exposed Amount of bleeding with debridement: Mild Bleeding Controlled with: Compression and gauze Patient tolerated procedure: Patient tolerated procedure well Post-Debridement Measurements and Additional Note: Post-Debridement Measurements/Treatment - Nurse 1 - General Ulcer Assessment Start: 01/29/24 14:11 Freq: Status: Active Protocol: LACEY Activity Type Activity Date Activity User E-sign Co-sign Detail Recorded Client Recorded Date Recorded By Document 01/29/24 14:11 [id number] 01/29/24 14:15 01/29/24 14:11 - Today's Visit Information Type of service Follow-up Visit (Physician/MEDICARE SPECIALIST ) Arrival Mode Ambulatory Transfer Assistance None Patient Identification Verified (Name & Yes ) Patient Requires Transmission-Based No Precautions Height and Weight Body Mass Index (BMI) 78.2 BMI Classification Obese Vital Signs Temperature (97.8 F-99.1 F) 97.5 F L Temperature Source Temporal Pulse Rate (60-100) 87 Pulse Location Monitor Respiratory Rate (12-18) 18 Respiratory rate source Observation Blood Pressure (90/60-120/80) 157/80 H Blood Pressure Mean 105 Source Monitor Position Semi-Fowlers Blood Pressure Location Left Arm History Since Last Visit- (Skip if this is Patient's initial visit) Have you changed medications since your No last visit? Any new allergies or adverse reactions No Had a fall/change in ADL's that may No increase risk of falls Signs or symptoms of abuse and/or No neglect since last visit Have you been in the hospital since your No last visit? Has dressing in place as prescribed Yes Has compression in place as prescribed Yes Has offloadiing in place as prescribed No Experienced any changes in pain level or No management Pain Scale: 0-10 Numeric Is Patient Pain Free? No RLE -Description Burning,Aching -Intensity 5 -Duration (hours) Acute -Pain Behavior Withdrawal from Touch -Pain Aggravating Factors Exercise/ Activity -Alleviating Factors/Interventions Medication -Effectiveness of Alleviating Factor/ Moderately Intervention effective WC - Nurse 1 - General Ulcer Measurement Start: 01/29/24 14:11 Freq: Status: Active Protocol: Activity Type Activity Date Activity User E-sign Co-sign Detail Recorded Client Recorded Date Recorded By Document 01/29/24 14:11 RB [id number] 01/29/24 14:15 RB 01/29/24 14:11 Wound Center Nurse 1 right lower leg circumferential -Combined with other wound No -Current Size (cm) - Length 22.2 -Current Size (cm) - Width 8 -Current Size (cm) - Depth 0.1 -Total Square Cm 177.6 -Tunneling No -Undermining/Tunneling No -Circular Undermining No -Exudate Amt Medium -Exudate Type Serosanguineous -Wound Margin Distinct, Outline Attached -Granulation Amt Medium (34-66%) -Granulation Quality [place] -Slough/Fibrin Yes -Necrosis Amt Medium (34-66%) -Necrotic Tissue Type Adherent Slough -Structure Exposed N/A -Texture (Callie-wound Skin Appearance) Assessed -Moisture (Callie-wound Skin Appearance) Assessed, Weeping -Color (Callie-wound Skin Appearance) Assessed -Temperature (Callie-wound Skin No Abnormality Appearance) (Pt Warm) -Tenderness on Palpation (Callie-wound No Skin Appearance) -Ulcer Cleansing Wound Cleanser -Foul Odor after Cleansing No -Anesthetic Used 4% Lidocaine Solution Lower Limb Edema Present Yes Right Calf (cm) 71 Right Ankle (cm) 34.5 WC - Nurse 2 - General Ulcer CM Notes Start: 01/29/24 14:11 Freq: Status: Active Protocol: Activity Type Activity Date Activity User E-sign Co-sign Detail Recorded Client Recorded Date Recorded By Document 01/29/24 14:27 DS [id number] 01/29/24 14:32 DS Edit Result 01/29/24 14:27 DS (1) [id number] 01/29/24 16:04 DS (1) right LE Anterior - Debridement, SubQ, ea addt'l 20sq cm => 1 or part thereof 01/29/24 14:27 Wound Center Nurse 2 right LE Posterior -Time 14:23 -Correct Patient Yes -Correct Side, Site, Position Yes -Correct Procedure Yes -Procedure Performed Yes -Type of Procedure Debridement -Clinical Debridement Subcutaneous -Tissue Removed Subcutaneous -Post Debridement (cm) - Length 4.0 -Post Debridement (cm) - Width 4.0 -Post Debridement (cm) - Depth 0.1 -Total Square (Post) (cm) 16.00 -Area of Debridement (cm) - Length 4.0 -Area of Debridement (cm) - Width 4.0 -Total Square (Area) (cm) 16.00 -Tunneling No -Undermining/Tunneling No -Circular Undermining No -Wound/Ulcer Outcome Not Healed -Ulcer Cleansing Rinsed/ Irrigated with Saline -Bioengineered Tissue No -Bleeding Controlled with Pressure -Treatment Response Procedure Tolerated Well -Debridement - Subq, 1st 20sq cm No right LE Anterior -Time 14:23 -Correct Patient Yes -Correct Side, Site, Position Yes -Correct Procedure Yes -Procedure Performed Yes -Type of Procedure Debridement -Clinical Debridement Subcutaneous -Tissue Removed Subcutaneous -Post Debridement (cm) - Length 5.0 -Post Debridement (cm) - Width 2.6 -Post Debridement (cm) - Depth 0.1 -Total Square (Post) (cm) 13.00 -Area of Debridement (cm) - Length 5.0 -Area of Debridement (cm) - Width 2.6 -Total Square (Area) (cm) 13.00 -Tunneling No -Undermining/Tunneling No -Circular Undermining No -Wound/Ulcer Outcome Not Healed -Ulcer Cleansing Rinsed/ Irrigated with Saline -Bioengineered Tissue No -Bleeding Controlled with Pressure -Treatment Response Procedure Tolerated Well -Debridement - Subq, 1st 20sq cm Yes -Debridement, SubQ, ea addt'l 20sq cm 1 or part thereof Pain Scale: 0-10 Numeric Is Patient Pain Free? Yes WC - Nurse 3 - General Ulcer D/C NN Start: 01/29/24 14:11 Freq: Status: Active Protocol: Activity Type Activity Date Activity User E-sign Co-sign Detail Recorded Client Recorded Date Recorded By Document 01/29/24 14:52 [id number] 01/29/24 14:53 KW 01/29/24 14:52 Wound Care Center Nurse 3 right #2 -Multi-Layered Wrap Application Multi-Layer Comp - Right ($ ) Right -Multi-Layered Wrap Application Unna Boot - Right ($) Pain Scale: 0-10 Numeric Is Patient Pain Free? Yes WC - Visit Discharge Discharge Condition Stable Ambulatory Status Ambulatory,Cane Transportation Private Auto Charges/Coding Multi Select Codes Integumentary Integumentary CPT Codes: 14264 Crys subq tissue 20 sq cm/< (29338 x 1; 33724 x 1 - Right leg) Assessment/Plan Assessment/Plan (1) Venous ulcer of right leg: CODE(S): I83.019 - Varicose veins of right lower extremity with ulcer of unspecified site; L97.919 - Non-pressure chronic ulcer of unspecified part of right lower leg with unspecified severity (2) Cellulitis of right leg: CODE(S): L03.115 - Cellulitis of right lower limb (3) Venous stasis dermatitis of right lower extremity: CODE(S): I87.2 - Venous insufficiency (chronic) (peripheral) (4) Bilateral lower extremity edema: CODE(S): R60.0 - Localized edema (5) Lymphedema of both lower extremities: CODE(S): I89.0 - Lymphedema, not elsewhere classified (6) 1+ pitting edema: CODE(S): R60.9 - Edema, unspecified (7) Morbid obesity with BMI of 70 and over, adult: CODE(S): E66.01 - Morbid (severe) obesity due to excess calories; Z68.45 - Body mass index [BMI] 70 or greater, adult PLAN: Plan This is a 33-year-old morbidly obese female who presented with a large venous ulceration in the gaiter area of her distal right lower extremity. It is associated with venous stasis dermatitis. The patient has finished her course of oral Keflex, and the signs of cellulitis appear to have abated. The patient's BMI is 78.2. She denies significant other medical problems, and she is not a smoker. A lengthy discussion has been undertaken with the patient regarding the measures appropriate to the management of her venous disease, which is suspected to be the etiology of her presenting symptoms and manifestations. Weight loss has been recommended, though not likely to be of major impact in the short-term. We are to seek consultation with the dietary service, for nutritional counseling. She has been advised to elevate her lower extremities is much as possible, which is to be implemented to heart level, or higher, as much as possible. She has been encouraged to sleep on a flat mattress at night. She does not currently have a bed at her apartment, and measures will be undertaken to assist her in procuring a bed. Social agencies may be of benefit. She has been encouraged to elevate her lower extremities during both nighttime and daytime hours. Prolonged idle standing and sitting have been discouraged. Activity has been encouraged. The benefits of implementing the calf muscle pumps have been explained. We are to continue compression to the right lower extremity by means of a multilayer Unna boot compression wrap. The patient is to return in 3 days for a replacement of the Unna boot compression wrap. There has been some difficult in preventing the compression wrap from sliding down, though this appears to be related to the patient's obesity and the shape of her calf. Because the patient does not have family members or friends to assist in her management, efforts will be made to obtain assistance, perhaps by home health nursing care. The patient is to return in 1 week for reevaluation. Total time: 28 minutes
[2024-02-05 14:21] VITALS: BP 156/93; PULSE 90; RESP 18; TEMP 36.3; BMI 78.2
--- NOTE | 2024-02-06 12:08 | WC ---
PHOTO 02/05/24 RLE ANTERIOR
--- NOTE | 2024-02-06 12:10 | WC ---
PHOTO 02/05/24 RLE POST
--- NOTE | 2024-02-06 12:13 | WC ---
PHOTO 03/07/23 RLE POST
--- NOTE | 2024-02-06 14:43 | HP.PCM_ITS ---
History of Present Illness Date of Service: 02/05/24 Chief Complaint: Venous ulceration, cellulitis, chronic venous insufficiency, venous stasis dermatitis, pitting edema, lymphedema - right lower extremity History of Wound: This is a morbidly obese 33-year-old female who presented with a venous ulceration and cellulitis involving her right lower extremity. The patient also suffers from chronic venous insufficiency, and venous stasis dermatitis in the right lower extremity. She also has pitting edema and lymphedema in her lower extremities bilaterally. According to the patient, she had the ulceration and dermatitic changes in her right lower extremity for approximately 3 months. Only recently did she seek medical attention. She was seen and evaluated in the [facility] Emergency Department on January 10, 2024, where she was placed on Keflex 500 mg p.o. twice daily x 10 days in treatment for right lower extremity cellulitis. She is in the final phase of her antibiotic course. The patient was evaluated at the [facility] on January 17, 2024, where she was referred for definitive management at the [facility]. At her visit to the [facility], betadine was applied to her right lower extremity ulceration, in addition to an Dwight wrap. The patient is morbidly obese, with a BMI of 78.2. 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 She lives alone, with very few resources. She does not have a bed, and sleeps in a recliner. She states that her recliner is broken, and that her legs cannot be elevated. The patient lives alone, and does not have family or friends to assist her with her daily needs. She denies a history of significant medical problems such as myocardial infarction, congestive heart failure, diabetes mellitus, pulmonary disease, renal disease, thyroid disease, and cerebrovascular disease. She denies prior surgical procedures. She does not use tobacco products. [facility] Medical History Morbid obesity with BMI of 70 and over, adult Venous stasis dermatitis of right lower extremity Venous ulcer of right leg Cellulitis of right leg 1+ pitting edema Lymphedema of both lower extremities Bilateral lower extremity edema Home Medications ?Medication ?Instructions ?Recorded ?Last Taken ?Type naproxen 500 mg tablet 500 mg PO BID PRN #20 tabs 02/02/18 Unknown Rx cephalexin 500 mg capsule 500 mg PO Q6 #40 CAPSULES 01/10/24 Unknown Rx Allergy/AdvReac Type Severity Reaction Status Date / Time No Known Allergies Allergy Verified 02/16/21 13:44 Surgical History no surgical history Social History Smoking Status: Never smoker Vital Signs Vital Signs Vital Signs: Weight Weight: 500 lb Body Mass Index (BMI) 78.2 Physical Exam Const alert, oriented x3, no apparent distress, no limitations and well nourished Constitutional Narrative: The patient is morbidly obese, with a BMI of 78.2 General Appearance: cooperative, comfortable, well kempt and well developed Orientation / Consciousness: awake, oriented to person, oriented to place and oriented to time Exam Limitations: no limitations HEENT normocephalic, head/scalp atraumatic and hearing grossly normal bilaterally Head and Scalp: normal to inspection, normocephalic and atraumatic Face and Sinus: normal facial exam Nose: external nose normal External Ear: external ears normal Eyes EOMs intact bilaterally General Eye: normal appearance of both eyes Neck full ROM Resp normal respiratory effort, normal air movement, no retractions and no use of accessory muscles Effort and Inspection: able to speak in complete sentences GI Inspection: pannus present Extremity no calf tenderness General Extremity: Negative for clubbing or cyanosis Skin Wound Narrative: Edema and lymphedema are noted in the lower extremities bilaterally. The edema appears to be diminishing bilaterally. Cellulitis in the right lower extremity appears to have resolved. Venous stasis dermatitis and venous ulcerations persist in the gaiter area of the right lower extremity though significant improvement is noted. There is an ulceration noted anteriorly, and 1 posteriorly, both of which continued to diminish in size.. The dimensions of each are documented elsewhere. There has been significant improvement in the dermatitis and the nonviable, sloughing epidermis in this area. The ulcerations extend through all layers of the dermis and into the subcutaneous tissues primarily, though there are areas of more superficial ulceration. There are increasing areas of healthy, pink granulation tissue, with peripheral epithelialization. There is no sign of infection or cellulitis. Neuro oriented x3, CN's II-XII intact bilaterally, moves all extremities, no focal motor deficits and no sensory deficits noted Sensorium / Orientation: awake, alert, oriented to person, oriented to place and oriented to time Cranial Nerves: CN normal except as noted Speech: speech normal Psych Appearance: grossly normal and appropriate Attitude: calm Activity / Motor Behavior: appropriate eye contact Speech: normal speech Mood & Affect: euthymic mood Thought Process: normal thought process Thought Content: normal thought content Attention / Concentration: attention grossly intact Debridement Note Debridement Note No debridement was completed: No debridement was completed today Post-Debridement Measurements and Additional Note: Post-Debridement Measurements/Treatment WC - Nurse 1 - General Ulcer Assessment Start: 01/29/24 14:11 Freq: Status: Active Protocol: AILYNSpringCMGUS Activity Type Activity Date Activity User E-sign Co-sign Detail Recorded Client Recorded Date Recorded By Document 01/29/24 14:11 RB [id number] 01/29/24 14:15 RB Document 02/05/24 14:21 KW [id number] 02/05/24 14:39 KW 01/29/24 02/05/24 14:11 14:21 - Today's Visit Information Type of service Follow-up Visit Follow-up Visit (Physician/CUSTOMER ACCOUNT ADMINISTRATOR (Physician/CUSTOMER ACCOUNT ADMINISTRATOR ) ) Arrival Mode Ambulatory Ambulatory,Cane Transfer Assistance None Patient Identification Verified (Name & Yes Yes ) Patient Requires Transmission-Based No Precautions Height and Weight Body Mass Index (BMI) 78.2 78.2 BMI Classification Obese Obese Vital Signs Temperature (97.8 F-99.1 F) 97.5 F L 97.3 F L Temperature Source Temporal Temporal Pulse Rate (60-100) 87 90 Pulse Location Monitor Monitor Respiratory Rate (12-18) 18 18 Respiratory rate source Observation Observation Oxygen Delivery Method Room Air Blood Pressure (90/60-120/80) 157/80 H 156/93 H Blood Pressure Mean 105 114 Source Monitor Monitor Position Semi-Fowlers Sitting Blood Pressure Location Left Arm Left Arm History Since Last Visit- (Skip if this is Patient's initial visit) Have you changed medications since your No No last visit? Any new allergies or adverse reactions No No Had a fall/change in ADL's that may No No increase risk of falls Signs or symptoms of abuse and/or No No neglect since last visit Have you been in the hospital since your No No last visit? Has dressing in place as prescribed Yes Yes Has compression in place as prescribed Yes Yes Has offloadiing in place as prescribed No N/A Experienced any changes in pain level or No No management Left Footwear Regular Shoe Right Footwear Regular Shoe Pain Scale: 0-10 Numeric Is Patient Pain Free? No Yes RLE -Description Burning,Aching -Intensity 5 -Duration (hours) Acute -Pain Behavior Withdrawal from Touch -Pain Aggravating Factors Exercise/ Activity -Alleviating Factors/Interventions Medication -Effectiveness of Alleviating Factor/ Moderately Intervention effective WC - Nurse 1 - General Ulcer Measurement Start: 01/29/24 14:11 Freq: Status: Active Protocol: Activity Type Activity Date Activity User E-sign Co-sign Detail Recorded Client Recorded Date Recorded By Document 01/29/24 14:11 RB [id number] 01/29/24 14:15 RB Document 02/05/24 14:21 KW [id number] 02/05/24 14:39 KW 01/29/24 02/05/24 14:11 14:21 Wound Center Nurse 1 right LE Posterior -Current Size (cm) - Length 3.5 -Current Size (cm) - Width 3 -Current Size (cm) - Depth 0.1 -Total Square Cm 10.5 -Date of Last Picture (Recall this 02/05/24 field) -Exudate Amt Small -Exudate Type Serosanguineous -Wound Margin Distinct, Outline Attached -Granulation Amt Large (67-100%) -Granulation Quality [place],Red -Necrosis Amt Small (1-33%) -Necrotic Tissue Type Adherent Slough -Texture (Callie-wound Skin Appearance) Assessed -Moisture (Callie-wound Skin Appearance) Assessed -Color (Calile-wound Skin Appearance) Assessed -Temperature (Callie-wound Skin No Abnormality Appearance) (Pt Warm) -Tenderness on Palpation (Callie-wound No Skin Appearance) -Ulcer Cleansing Soap and Water -Foul Odor after Cleansing No -Anesthetic Used 4% Lidocaine Solution right LE Anterior -Current Size (cm) - Length 4.5 -Current Size (cm) - Width 2 -Current Size (cm) - Depth 0.1 -Total Square Cm 9.0 -Date of Last Picture (Recall this 02/05/24 field) -Exudate Amt Medium -Exudate Type Serosanguineous -Wound Margin Distinct, Outline Attached -Granulation Amt Large (67-100%) -Granulation Quality [place],Red -Necrosis Amt Small (1-33%) -Necrotic Tissue Type Adherent Slough -Texture (Callie-wound Skin Appearance) Assessed -Moisture (Callie-wound Skin Appearance) Assessed, Maceration -Color (Callie-wound Skin Appearance) Assessed -Temperature (Callie-wound Skin No Abnormality Appearance) (Pt Warm) -Tenderness on Palpation (Callie-wound No Skin Appearance) -Ulcer Cleansing Soap and Water -Foul Odor after Cleansing No -Anesthetic Used 4% Lidocaine Solution right lower leg circumferential -Combined with other wound No -Current Size (cm) - Length 22.2 0 -Current Size (cm) - Width 8 0 -Current Size (cm) - Depth 0.1 0 -Total Square Cm 177.6 0 -Tunneling No -Undermining/Tunneling No -Circular Undermining No -Exudate Amt Medium None Present -Exudate Type Serosanguineous -Wound Margin Distinct, Distinct, Outline Outline Attached Attached -Granulation Amt Medium (34-66%) Large (67-100%) -Granulation Quality [place],Red -Slough/Fibrin Yes -Necrosis Amt Medium (34-66%) -Necrotic Tissue Type Adherent Slough -Structure Exposed N/A -Texture (Callie-wound Skin Appearance) Assessed Assessed -Moisture (Callie-wound Skin Appearance) Assessed, Assessed Weeping -Color (Callie-wound Skin Appearance) Assessed Assessed -Temperature (Callie-wound Skin No Abnormality No Abnormality Appearance) (Pt Warm) (Pt Warm) -Tenderness on Palpation (Callie-wound No No Skin Appearance) -Ulcer Cleansing Wound Cleanser Soap and Water -Foul Odor after Cleansing No No -Anesthetic Used 4% Lidocaine Solution Lower Limb Edema Present Yes Right Calf (cm) 71 68.5 Right Ankle (cm) 34.5 35 WC - Nurse 2 - General Ulcer CM Notes Start: 01/29/24 14:11 Freq: Status: Active Protocol: Activity Type Activity Date Activity User E-sign Co-sign Detail Recorded Client Recorded Date Recorded By Document 01/29/24 14:27 DS [id number] 01/29/24 14:32 DS Edit Result 01/29/24 14:27 DS (1) [id number] 01/29/24 16:04 DS Document 02/05/24 14:56 DS [id number] 02/05/24 14:57 DS (1) right LE Anterior - Debridement, SubQ, ea addt'l 20sq cm => 1 or part thereof 01/29/24 02/05/24 14:27 14:56 Wound Center Nurse 2 right LE Posterior -Time 14:23 14:56 -Correct Patient Yes Yes -Correct Side, Site, Position Yes -Correct Procedure Yes -Procedure Performed Yes No -Type of Procedure Debridement -Clinical Debridement Subcutaneous -Tissue Removed Subcutaneous -Post Debridement (cm) - Length 4.0 1.2 -Post Debridement (cm) - Width 4.0 4.0 -Post Debridement (cm) - Depth 0.1 0.1 -Total Square (Post) (cm) 16.00 4.80 -Area of Debridement (cm) - Length 4.0 1.2 -Area of Debridement (cm) - Width 4.0 4.0 -Total Square (Area) (cm) 16.00 4.80 -Tunneling No No -Undermining/Tunneling No No -Circular Undermining No No -Wound/Ulcer Outcome Not Healed Not Healed -Ulcer Cleansing Rinsed/ Irrigated with Saline -Bioengineered Tissue No -Bleeding Controlled with Pressure -Treatment Response Procedure Tolerated Well -Debridement - Subq, 1st 20sq cm No right LE Anterior -Time 14:23 14:57 -Correct Patient Yes Yes -Correct Side, Site, Position Yes -Correct Procedure Yes -Procedure Performed Yes No -Type of Procedure Debridement -Clinical Debridement Subcutaneous -Tissue Removed Subcutaneous -Post Debridement (cm) - Length 5.0 4.0 -Post Debridement (cm) - Width 2.6 1.5 -Post Debridement (cm) - Depth 0.1 0.1 -Total Square (Post) (cm) 13.00 6.00 -Area of Debridement (cm) - Length 5.0 4.0 -Area of Debridement (cm) - Width 2.6 1.5 -Total Square (Area) (cm) 13.00 6.00 -Tunneling No No -Undermining/Tunneling No No -Circular Undermining No No -Wound/Ulcer Outcome Not Healed Not Healed -Ulcer Cleansing Rinsed/ Irrigated with Saline -Bioengineered Tissue No -Bleeding Controlled with Pressure -Treatment Response Procedure Tolerated Well -Debridement - Subq, 1st 20sq cm Yes -Debridement, SubQ, ea addt'l 20sq cm 1 or part thereof Pain Scale: 0-10 Numeric Is Patient Pain Free? Yes Yes WC - Nurse 3 - General Ulcer D/C NN Start: 01/29/24 14:11 Freq: Status: Active Protocol: Activity Type Activity Date Activity User E-sign Co-sign Detail Recorded Client Recorded Date Recorded By Document 01/29/24 14:52 KW [id number] 01/29/24 14:53 KW Document 02/01/24 09:52 DS [id number] 02/01/24 10:13 DS 01/29/24 02/01/24 14:52 09:52 Wound Care Center Nurse 3 right #2 -Multi-Layered Wrap Application Multi-Layer Multi-Layer Comp - Right ($ Comp - Right ($ ) ) -Other 2 multi layer used Right -Multi-Layered Wrap Application Unna Boot - Unna Boot - Right ($) Right ($) Pain Scale: 0-10 Numeric Is Patient Pain Free? Yes Yes WC - Visit Discharge Discharge Condition Stable Stable Ambulatory Status Ambulatory,Cane Ambulatory Transportation Private Auto Private Auto Charges/Coding Visit Charges Office Visits / Consults: [id number] OV L3 Est 20min Assessment/Plan Assessment/Plan (1) Venous ulcer of right leg: CODE(S): I83.019 - Varicose veins of right lower extremity with ulcer of unspecified site; L97.919 - Non-pressure chronic ulcer of unspecified part of right lower leg with unspecified severity (2) Cellulitis of right leg: CODE(S): L03.115 - Cellulitis of right lower limb (3) Venous stasis dermatitis of right lower extremity: CODE(S): I87.2 - Venous insufficiency (chronic) (peripheral) (4) Bilateral lower extremity edema: CODE(S): R60.0 - Localized edema (5) Lymphedema of both lower extremities: CODE(S): I89.0 - Lymphedema, not elsewhere classified (6) 1+ pitting edema: CODE(S): R60.9 - Edema, unspecified (7) Morbid obesity with BMI of 70 and over, adult: CODE(S): E66.01 - Morbid (severe) obesity due to excess calories; Z68.45 - Body mass index [BMI] 70 or greater, adult PLAN: Plan This is a 33-year-old morbidly obese female who presented with a large venous ulceration in the gaiter area of her distal right lower extremity. It is associated with venous stasis dermatitis. The patient has finished her course of oral Keflex, and the signs of cellulitis appear to have abated. The patient's BMI is 78.2. She denies significant other medical problems, and she is not a smoker. A lengthy discussion has been undertaken with the patient regarding the measures appropriate to the management of her venous disease, which is suspected to be the etiology of her presenting symptoms and manifestations. Weight loss has been recommended, though not likely to be of major impact in the short-term. We are to seek consultation with the dietary service for nutritional counseling. She has been advised to elevate her lower extremities is much as possible, which is to be implemented to heart level, or higher, as much as possible. She has been encouraged to sleep on a flat mattress at night. She does not currently have a bed at her apartment, and measures have been undertaken to assist her in procuring a bed. It appears as though the patient will be receiving a hospital bed delivered to her home later this week. The patient has been encouraged to elevate her lower extremities during both nighttime and daytime hours. Prolonged idle standing and sitting have been discouraged. Activity has been encouraged. The benefits of implementing the calf muscle pumps have been explained. We are to continue compression to the right lower extremity by means of a multilayer Unna boot compression wrap. The patient is to return in 3 days for a replacement of the Unna boot compression wrap, and a regimen of twice weekly Unna boot applications. The patient is to return in 1 week for reevaluation. Total time: 24 minutes
[2024-02-12 14:48] VITALS: BP 152/72; PULSE 87; RESP 18; TEMP 36.6; BMI 78.2
--- NOTE | 2024-02-13 18:20 | HP.PCM_ITS ---
History of Present Illness Date of Service: 02/12/24 Chief Complaint: Venous ulceration, cellulitis, chronic venous insufficiency, venous stasis dermatitis, pitting edema, lymphedema - right lower extremity History of Wound: This is a morbidly obese 33-year-old female who presented with a venous ulceration and cellulitis involving her right lower extremity. The patient also suffers from chronic venous insufficiency, and venous stasis dermatitis in the right lower extremity. She also has pitting edema and lymphedema in her lower extremities bilaterally. According to the patient, she had the ulceration and dermatitic changes in her right lower extremity for approximately 3 months. Only recently did she seek medical attention. She was seen and evaluated in the [facility] Emergency Department on January 10, 2024, where she was placed on Keflex 500 mg p.o. twice daily x 10 days in treatment for right lower extremity cellulitis. She has completed the course of antibiotics. The patient was evaluated at the [facility] on January 17, 2024, where she was referred for definitive management at the [facility]. At her visit to the [facility], betadine was applied to her right lower extremity ulceration, in addition to an Dwight wrap. The patient is morbidly obese, with a BMI of 78.2. 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. She lives alone, with very few resources. She does not have a bed, and sleeps in a recliner. She states that her recliner is broken, and that her legs cannot be elevated. The patient lives alone, and does not have family or friends to assist her with her daily needs. She denied a history of significant medical problems such as myocardial infarction, congestive heart failure, diabetes mellitus, pulmonary disease, renal disease, thyroid disease, and cerebrovascular disease. She denied prior surgical procedures. She does not use tobacco products. [facility] Medical History Morbid obesity with BMI of 70 and over, adult Venous stasis dermatitis of right lower extremity Venous ulcer of right leg Cellulitis of right leg 1+ pitting edema Lymphedema of both lower extremities Bilateral lower extremity edema Home Medications ?Medication ?Instructions ?Recorded ?Last Taken ?Type naproxen 500 mg tablet 500 mg PO BID PRN #20 tabs 02/02/18 Unknown Rx cephalexin 500 mg capsule 500 mg PO Q6 #40 CAPSULES 01/10/24 Unknown Rx Allergy/AdvReac Type Severity Reaction Status Date / Time No Known Allergies Allergy Verified 02/16/21 13:44 Surgical History no surgical history Social History Smoking Status: Never smoker Vital Signs Vital Signs Vital Signs: Weight Weight: 500 lb Body Mass Index (BMI) 78.2 Physical Exam Const alert, oriented x3, no apparent distress, no limitations and well nourished Constitutional Narrative: The patient is morbidly obese, with a BMI of 78.2 General Appearance: cooperative, comfortable, well kempt and well developed Orientation / Consciousness: awake, oriented to person, oriented to place and oriented to time Exam Limitations: no limitations HEENT normocephalic, head/scalp atraumatic and hearing grossly normal bilaterally Head and Scalp: normal to inspection, normocephalic and atraumatic Face and Sinus: normal facial exam Nose: external nose normal External Ear: external ears normal Eyes EOMs intact bilaterally General Eye: normal appearance of both eyes Neck full ROM Resp normal respiratory effort, normal air movement, no retractions and no use of accessory muscles Effort and Inspection: able to speak in complete sentences GI Inspection: pannus present Extremity no calf tenderness General Extremity: Negative for clubbing or cyanosis Skin Wound Narrative: Swelling, edema, and lymphedema are noted in the lower extremities bilaterally. The amount of swelling and edema appear to be diminishing bilaterally. Skye lulitis in the right lower extremity appears to have resolved. Venous stasis dermatitis and venous ulcerations persist in the gaiter area of the right lower extremity though significant improvement is noted. The ulceration noted anteriorly is now nearly completely healed, though mild dermatitic changes remain. The ulceration on the right posterior calf is much improved, and continues to diminish in size. Dimensions of each are documented elsewhere. There has been significant improvement in the dermatitis and the nonviable, sloughing epidermis in this area. The remaining ulceration ulcerations extend through all layers of the dermis and into the subcutaneous tissues. There are increasing areas of healthy, pink granulation tissue, with peripheral epithelialization. There is no sign of infection or cellulitis. Neuro oriented x3, CN's II-XII intact bilaterally, moves all extremities, no focal motor deficits and no sensory deficits noted Sensorium / Orientation: awake, alert, oriented to person, oriented to place and oriented to time Cranial Nerves: CN normal except as noted Speech: speech normal Psych Appearance: grossly normal and appropriate Attitude: calm Activity / Motor Behavior: appropriate eye contact Speech: normal speech Mood & Affect: euthymic mood Thought Process: normal thought process Thought Content: normal thought content Attention / Concentration: attention grossly intact Debridement Note Debridement Note Wound debrided: Right posterior calf ulceration Laterality: Right Type of Debridement: Excisional debridement Anesthesia Used: 5% Lidocaine Gel Depth: Down to and including healthy tissue and in the subcutaneous layer Percentage of wound debrided: 100 Instrument Used: 5mm curette Tissue Removed: Bioburden and devitalized tissue Severity: Fat Layer Exposed Amount of bleeding with debridement: Mild Bleeding Controlled with: Compression and gauze Patient tolerated procedure: Patient tolerated procedure well Post-Debridement Measurements and Additional Note: Post-Debridement Measurements/Treatment - Nurse 1 - General Ulcer Assessment Start: 01/29/24 14:11 Freq: Status: Active Protocol: LACEY Activity Type Activity Date Activity User E-sign Co-sign Detail Recorded Client Recorded Date Recorded By Document 01/29/24 14:11 RB [id number] 01/29/24 14:15 RB Document 02/05/24 14:21 KW [id number] 02/05/24 14:39 KW Document 02/12/24 14:48 KW [id number] 02/12/24 15:03 KW 01/29/24 02/05/24 02/12/24 14:11 14:21 14:48 - Today's Visit Information Type of service Follow-up Visit Follow-up Visit Follow-up Visit (Physician/MEDICINE TECHNOLOGIST (Physician/MEDICINE TECHNOLOGIST (Physician/MEDICINE TECHNOLOGIST ) ) ) Arrival Mode Ambulatory Ambulatory,Cane Ambulatory Transfer Assistance None Patient Identification Verified (Name & Yes Yes Yes ) Patient Requires Transmission-Based No Precautions Height and Weight Body Mass Index (BMI) 78.2 78.2 78.2 BMI Classification Obese Obese Obese Vital Signs Temperature (97.8 F-99.1 F) 97.5 F L 97.3 F L 97.8 F Temperature Source Temporal Temporal Temporal Pulse Rate (60-100) 87 90 87 Pulse Location Monitor Monitor Monitor Respiratory Rate (12-18) 18 18 18 Respiratory rate source Observation Observation Observation Oxygen Delivery Method Room Air Room Air Blood Pressure (90/60-120/80) 157/80 H 156/93 H 152/72 H Blood Pressure Mean 105 114 98 Source Monitor Monitor Monitor Position Semi-Fowlers Sitting Semi-Fowlers Blood Pressure Location Left Arm Left Arm Left Arm History Since Last Visit- (Skip if this is Patient's initial visit) Have you changed medications since your No No No last visit? Any new allergies or adverse reactions No No No Had a fall/change in ADL's that may No No No increase risk of falls Signs or symptoms of abuse and/or No No No neglect since last visit Have you been in the hospital since your No No No last visit? Has dressing in place as prescribed Yes Yes Yes Has compression in place as prescribed Yes Yes Yes Has offloadiing in place as prescribed No N/A N/A Experienced any changes in pain level or No No No management Left Footwear Regular Shoe Regular Shoe Right Footwear Regular Shoe Regular Shoe Pain Scale: 0-10 Numeric Is Patient Pain Free? No Yes Yes RLE -Description Burning,Aching -Intensity 5 -Duration (hours) Acute -Pain Behavior Withdrawal from Touch -Pain Aggravating Factors Exercise/ Activity -Alleviating Factors/Interventions Medication -Effectiveness of Alleviating Factor/ Moderately Intervention effective WC - Nurse 1 - General Ulcer Measurement Start: 01/29/24 14:11 Freq: Status: Active Protocol: Activity Type Activity Date Activity User E-sign Co-sign Detail Recorded Client Recorded Date Recorded By Document 01/29/24 14:11 RB [id number] 01/29/24 14:15 RB Document 02/05/24 14:21 KW [id number] 02/05/24 14:39 KW Document 02/12/24 14:48 KW [id number] 02/12/24 15:03 KW 01/29/24 02/05/24 02/12/24 14:11 14:21 14:48 Wound Center Nurse 1 right lower leg circumferential -Combined with other wound No -Current Size (cm) - Length 22.2 0 -Current Size (cm) - Width 8 0 -Current Size (cm) - Depth 0.1 0 -Total Square Cm 177.6 0 -Tunneling No -Undermining/Tunneling No -Circular Undermining No -Exudate Amt Medium None Present -Exudate Type Serosanguineous -Wound Margin Distinct, Distinct, Outline Outline Attached Attached -Granulation Amt Medium (34-66%) Large (67-100%) -Granulation Quality [place],Red -Slough/Fibrin Yes -Necrosis Amt Medium (34-66%) -Necrotic Tissue Type Adherent Slough -Structure Exposed N/A -Texture (Callie-wound Skin Appearance) Assessed Assessed -Moisture (Callie-wound Skin Appearance) Assessed, Assessed Weeping -Color (Callie-wound Skin Appearance) Assessed Assessed -Temperature (Callie-wound Skin No Abnormality No Abnormality Appearance) (Pt Warm) (Pt Warm) -Tenderness on Palpation (Callie-wound No No Skin Appearance) -Ulcer Cleansing Wound Cleanser Soap and Water -Foul Odor after Cleansing No No -Anesthetic Used 4% Lidocaine Solution right LE Posterior -Current Size (cm) - Length 3.5 2 -Current Size (cm) - Width 3 3.5 -Current Size (cm) - Depth 0.1 0.1 -Total Square Cm 10.5 7.0 -Date of Last Picture (Recall this 02/05/24 field) -Exudate Amt Small Medium -Exudate Type Serosanguineous Serosanguineous -Wound Margin Distinct, Distinct, Outline Outline Attached Attached -Granulation Amt Large (67-100%) Large (67-100%) -Granulation Quality [place],Red Red -Necrosis Amt Small (1-33%) -Necrotic Tissue Type Adherent Slough -Texture (Callie-wound Skin Appearance) Assessed Assessed -Moisture (Callie-wound Skin Appearance) Assessed Assessed,Dry/ Scaly -Color (Callie-wound Skin Appearance) Assessed Assessed, Hemosiderin Staining -Temperature (Callie-wound Skin No Abnormality No Abnormality Appearance) (Pt Warm) (Pt Warm) -Tenderness on Palpation (Callie-wound No Yes Skin Appearance) -Ulcer Cleansing Soap and Water Soap and Water -Foul Odor after Cleansing No -Anesthetic Used 4% Lidocaine 5% Lidocaine Solution Gel right LE Anterior -Current Size (cm) - Length 4.5 0.1 -Current Size (cm) - Width 2 0.1 -Current Size (cm) - Depth 0.1 0.1 -Total Square Cm 9.0 0.01 -Date of Last Picture (Recall this 02/05/24 field) -Exudate Amt Medium None Present -Exudate Type Serosanguineous -Wound Margin Distinct, Distinct, Outline Outline Attached Attached -Granulation Amt Large (67-100%) -Granulation Quality [place],Red -Necrosis Amt Small (1-33%) -Necrotic Tissue Type Adherent Slough -Texture (Callie-wound Skin Appearance) Assessed Assessed -Moisture (Callie-wound Skin Appearance) Assessed, Assessed Maceration -Color (Callie-wound Skin Appearance) Assessed Assessed, Hemosiderin Staining -Temperature (Callie-wound Skin No Abnormality No Abnormality Appearance) (Pt Warm) (Pt Warm) -Tenderness on Palpation (Callie-wound No No Skin Appearance) -Ulcer Cleansing Soap and Water Soap and Water -Foul Odor after Cleansing No No -Anesthetic Used 4% Lidocaine Solution Lower Limb Edema Present Yes Right Calf (cm) 71 68.5 Right Ankle (cm) 34.5 35 Left Calf (cm) 64 Left Ankle (cm) 32.5 WC - Nurse 2 - General Ulcer CM Notes Start: 01/29/24 14:11 Freq: Status: Active Protocol: Activity Type Activity Date Activity User E-sign Co-sign Detail Recorded Client Recorded Date Recorded By Document 01/29/24 14:27 DS [id number] 01/29/24 14:32 DS Edit Result 01/29/24 14:27 DS (1) [id number] 01/29/24 16:04 DS Document 02/05/24 14:56 DS [id number] 02/05/24 14:57 DS Document 02/12/24 15:20 DS [id number] 02/12/24 15:25 DS (1) right LE Anterior - Debridement, SubQ, ea addt'l 20sq cm => 1 or part thereof 01/29/24 02/05/24 02/12/24 14:27 14:56 15:20 Wound Center Nurse 2 right LE Posterior -Time 14:23 14:56 15:20 -Correct Patient Yes Yes Yes -Correct Side, Site, Position Yes Yes -Correct Procedure Yes Yes -Procedure Performed Yes No Yes -Type of Procedure Debridement Debridement -Clinical Debridement Subcutaneous Subcutaneous -Tissue Removed Subcutaneous Subcutaneous -Post Debridement (cm) - Length 4.0 1.2 1.5 -Post Debridement (cm) - Width 4.0 4.0 4.5 -Post Debridement (cm) - Depth 0.1 0.1 0.1 -Total Square (Post) (cm) 16.00 4.80 6.75 -Area of Debridement (cm) - Length 4.0 1.2 1.5 -Area of Debridement (cm) - Width 4.0 4.0 4.5 -Total Square (Area) (cm) 16.00 4.80 6.75 -Tunneling No No No -Undermining/Tunneling No No No -Circular Undermining No No No -Wound/Ulcer Outcome Not Healed Not Healed Not Healed -Ulcer Cleansing Rinsed/ Rinsed/ Irrigated with Irrigated with Saline Saline -Bioengineered Tissue No No -Bleeding Controlled with Pressure Pressure -Treatment Response Procedure Procedure Tolerated Well Tolerated Well -Debridement - Subq, 1st 20sq cm No Yes right LE Anterior -Time 14:23 14:57 15:20 -Correct Patient Yes Yes Yes -Correct Side, Site, Position Yes -Correct Procedure Yes -Procedure Performed Yes No No -Type of Procedure Debridement -Clinical Debridement Subcutaneous -Tissue Removed Subcutaneous -Post Debridement (cm) - Length 5.0 4.0 0.1 -Post Debridement (cm) - Width 2.6 1.5 0.1 -Post Debridement (cm) - Depth 0.1 0.1 0.1 -Total Square (Post) (cm) 13.00 6.00 0.01 -Area of Debridement (cm) - Length 5.0 4.0 0.1 -Area of Debridement (cm) - Width 2.6 1.5 0.1 -Total Square (Area) (cm) 13.00 6.00 0.01 -Tunneling No No -Undermining/Tunneling No No -Circular Undermining No No -Wound/Ulcer Outcome Not Healed Not Healed Not Healed -Ulcer Cleansing Rinsed/ Irrigated with Saline -Bioengineered Tissue No -Bleeding Controlled with Pressure -Treatment Response Procedure Tolerated Well -Debridement - Subq, 1st 20sq cm Yes -Debridement, SubQ, ea addt'l 20sq cm 1 or part thereof Pain Scale: 0-10 Numeric Is Patient Pain Free? Yes Yes No RLE -Description Aching -Intensity 5 -Duration (hours) Chronic -Pain Aggravating Factors Debridement -Alleviating Factors/Interventions Will continue to monitor, Emotional Support AILYN - Nurse 3 - General Ulcer D/C NN Start: 01/29/24 14:11 Freq: Status: Active Protocol: Activity Type Activity Date Activity User E-sign Co-sign Detail Recorded Client Recorded Date Recorded By Document 01/29/24 14:52 [id number] 01/29/24 14:53 KW Document 02/01/24 09:52 DS [id number] 02/01/24 10:13 DS Document 02/12/24 16:15 RB [id number] 02/12/24 16:16 RB 01/29/24 02/01/24 02/12/24 14:52 09:52 16:15 Wound Care Center Nurse 3 right LE Posterior -Primary Dressing Applied Optilok 6.5x10 -Optilok 6.5x10 1 right #2 -Multi-Layered Wrap Application Multi-Layer Multi-Layer Comp - Right ($ Comp - Right ($ ) ) -Other 2 multi layer used Right -Multi-Layered Wrap Application Unna Boot - Unna Boot - Unna Boot - Right ($) Right ($) Right ($) Treatment Response Procedure Tolerated Well Pain Scale: 0-10 Numeric Is Patient Pain Free? Yes Yes Yes WC - Visit Discharge Discharge Condition Stable Stable Stable Ambulatory Status Ambulatory,Cane Ambulatory Ambulatory,Cane Transportation Private Auto Private Auto Private Auto Medication Reconcilliation completed & No provided to patient/care provider Clinical Summary of Care Provided Yes Charges/Coding Procedures Integumentary [id number]: [id number] Crys subq tissue 20 sq cm/< Assessment/Plan Assessment/Plan (1) Venous ulcer of right leg: CODE(S): I83.019 - Varicose veins of right lower extremity with ulcer of unspecified site; L97.919 - Non-pressure chronic ulcer of unspecified part of right lower leg with unspecified severity (2) Cellulitis of right leg: CODE(S): L03.115 - Cellulitis of right lower limb (3) Venous stasis dermatitis of right lower extremity: CODE(S): I87.2 - Venous insufficiency (chronic) (peripheral) (4) Bilateral lower extremity edema: CODE(S): R60.0 - Localized edema (5) Lymphedema of both lower extremities: CODE(S): I89.0 - Lymphedema, not elsewhere classified (6) 1+ pitting edema: CODE(S): R60.9 - Edema, unspecified (7) Morbid obesity with BMI of 70 and over, adult: CODE(S): E66.01 - Morbid (severe) obesity due to excess calories; Z68.45 - Body mass index [BMI] 70 or greater, adult PLAN: Plan This is a 33-year-old morbidly obese female who presented with a large venous ulceration in the gaiter area of her distal right lower extremity. It is associated with venous stasis dermatitis. The patient has finished her course of oral Keflex, and the signs of cellulitis have abated. The patient's BMI is 78.2. She denies significant other medical problems, and she is not a smoker. A lengthy discussion has been undertaken with the patient regarding the measures appropriate to the management of her venous disease, which is suspected to be the etiology of her presenting symptoms and manifestations. Weight loss has been recommended, though not likely to be of major impact in the short-term. Nonetheless, we have arranged consultation with a dietitian, who has met with the patient to provide nutritional recommendations and guidance. The patient has been advised to elevate her lower extremities as much as possible, which is to be implemented to heart level, or higher. She has been encouraged to sleep on a flat mattress at night. She does not have a bed at her apartment, and measures were undertaken to assist the patient in procuring a bed. A hospital bed has been delivered to her home, which will allow her to recline and elevate her legs as advised. The patient has been encouraged to elevate her lower extremities during both nighttime and daytime hours. Prolonged idle standing and sitting have been discouraged. Activity has been encouraged. The benefits of implementing the calf muscle pumps with activity have been explained. We are to continue compression to the right lower extremity by means of a multilayer Unna boot compression wrap. The patient is to return in 3 days for a replacement of the Unna boot compression wrap, and a regimen of twice weekly Unna boot applications. The patient has been measured for CircAid Velcro compression garments, as a means of adequate, long-term compression will be required by the patient. The patient is to return in 1 week for reevaluation. Total time: 25 minutes
[2024-02-15 10:01] VITALS: BP 145/68; PULSE 95; RESP 18; TEMP 37.2; BMI 78.2
[2024-02-19 11:00] VITALS: BP 168/91; PULSE 85; RESP 18; TEMP 36.1; BMI 78.2
--- NOTE | 2024-02-20 14:28 | HP.PCM_ITS ---
History of Present Illness Date of Service: 02/19/24 Chief Complaint: Venous ulceration, cellulitis, chronic venous insufficiency, venous stasis dermatitis, pitting edema, lymphedema - right lower extremity History of Wound: This is a morbidly obese 33-year-old female who presented with venous ulcerations and cellulitis involving her right lower extremity. The patient also suffers from chronic venous insufficiency, and venous stasis dermatitis in the right lower extremity. She also has pitting edema and lymphedema in her lower extremities bilaterally. According to the patient, she had the ulceration and dermatitic changes in her right lower extremity for approximately 3 months. Only recently did she seek medical attention. She was seen and evaluated in the [facility] Emergency Department on January 10, 2024, where she was placed on Keflex 500 mg p.o. twice daily x 10 d ays in treatment for right lower extremity cellulitis. She has completed the course of antibiotics. The patient was evaluated at the [facility] on January 17, 2024, where she was referred for definitive management at the [facility]. At her visit to the [facility], betadine was applied to her right lower extremity ulceration, in addition to an Dwight wrap. The patient is morbidly obese, with a BMI of 78.2. 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. She lives alone, with very few resources. She does not have a bed, and sleeps in a recliner. She states that her recliner is broken, and that her legs cannot be elevated. The patient lives alone, and does not have family or friends to assist her with her daily needs. She denied a history of significant medical problems such as myocardial infarction, congestive heart failure, diabetes mellitus, pulmonary disease, renal disease, thyroid disease, and cerebrovascular disease. She denied prior surgical procedures. She does not use tobacco products. [facility] Medical History Morbid obesity with BMI of 70 and over, adult Venous stasis dermatitis of right lower extremity Venous ulcer of right leg Cellulitis of right leg 1+ pitting edema Lymphedema of both lower extremities Bilateral lower extremity edema Home Medications ?Medication ?Instructions ?Recorded ?Last Taken ?Type naproxen 500 mg tablet 500 mg PO BID PRN #20 tabs 02/02/18 Unknown Rx cephalexin 500 mg capsule 500 mg PO Q6 #40 CAPSULES 01/10/24 Unknown Rx Allergy/AdvReac Type Severity Reaction Status Date / Time No Known Allergies Allergy Verified 02/16/21 13:44 Surgical History no surgical history Social History Smoking Status: Never smoker Vital Signs Vital Signs Vital Signs: Weight Weight: 500 lb Body Mass Index (BMI) 78.2 Physical Exam Const alert, oriented x3, no apparent distress, no limitations and well nourished Constitutional Narrative: The patient is morbidly obese, with a BMI of 78.2 General Appearance: cooperative, comfortable, well kempt and well developed Orientation / Consciousness: awake, oriented to person, oriented to place and oriented to time Exam Limitations: no limitations HEENT normocephalic, head/scalp atraumatic and hearing grossly normal bilaterally Head and Scalp: normal to inspection, normocephalic and atraumatic Face and Sinus: normal facial exam Nose: external nose normal External Ear: external ears normal Eyes EOMs intact bilaterally General Eye: normal appearance of both eyes Neck full ROM Resp normal respiratory effort, normal air movement, no retractions and no use of accessory muscles Effort and Inspection: able to speak in complete sentences GI Inspection: pannus present Extremity no calf tenderness General Extremity: Negative for clubbing or cyanosis Skin Wound Narrative: Swelling, edema, and lymphedema are noted in the lower extremities bilaterally. The amount of swelling and edema appear to be diminishing bilaterally. Cell ulitis in the right lower extremity appears to have resolved. The venous stasis dermatitis in the right lower extremity is markedly improved. Venous ulcerations persist in the gaiter area of the right lower extremity, though significant improvement is noted. Only a small clustered ulceration remains on the posterior aspect of the patient's right distal calf. The ulceration previously noted anteriorly is now completely healed. Dimensions of the remaining ulcerations are documented elsewhere. There has been significant improvement in the dermatitis and the nonviable, sloughing epidermis in this area. The remaining clustered ulceration extends through all layers of the dermis and into the subcutaneous tissues. There are increasing areas of healthy, pink granulation tissue, with peripheral epithelialization. There is no sign of infection or cellulitis. Wound margins are well beveled. Neuro oriented x3, CN's II-XII intact bilaterally, moves all extremities, no focal motor deficits and no sensory deficits noted Sensorium / Orientation: awake, alert, oriented to person, oriented to place and oriented to time Cranial Nerves: CN normal except as noted Speech: speech normal Psych Appearance: grossly normal and appropriate Attitude: calm Activity / Motor Behavior: appropriate eye contact Speech: normal speech Mood & Affect: euthymic mood Thought Process: normal thought process Thought Content: normal thought content Attention / Concentration: attention grossly intact Debridement Note Debridement Note Wound debrided: Right posterior calf ulceration Laterality: Right Type of Debridement: Excisional debridement Anesthesia Used: 5% Lidocaine Gel Depth: Down to and including healthy tissue and in the subcutaneous layer Percentage of wound debrided: 100 Instrument Used: 5mm curette Tissue Removed: Bioburden and devitalized tissue Severity: Fat Layer Exposed Amount of bleeding with debridement: Mild Bleeding Controlled with: Compression and gauze Patient tolerated procedure: Patient tolerated procedure well Post-Debridement Measurements and Additional Note: Post-Debridement Measurements/Treatment - Nurse 1 - General Ulcer Assessment Start: 01/29/24 14:11 Freq: Status: Active Protocol: LACEY Activity Type Activity Date Activity User E-sign Co-sign Detail Recorded Client Recorded Date Recorded By Document 01/29/24 14:11 RB [id number] 01/29/24 14:15 RB Document 02/05/24 14:21 KW [id number] 02/05/24 14:39 KW Document 02/12/24 14:48 KW [id number] 02/12/24 15:03 KW Document 02/15/24 10:01 RB [id number] 02/15/24 10:07 RB Document 02/19/24 11:00 KW [id number] 02/19/24 11:15 KW 01/29/24 02/05/24 02/12/24 14:11 14:21 14:48 - Today's Visit Information Type of service Follow-up Visit Follow-up Visit Follow-up Visit (Physician/ACCESS CONTROL OFFICER (Physician/ACCESS CONTROL OFFICER (Physician/ACCESS CONTROL OFFICER ) ) ) Arrival Mode Ambulatory Ambulatory,Cane Ambulatory Transfer Assistance None Patient Identification Verified (Name & Yes Yes Yes ) Patient Requires Transmission-Based No Precautions Height and Weight Body Mass Index (BMI) 78.2 78.2 78.2 BMI Classification Obese Obese Obese Vital Signs Temperature (97.8 F-99.1 F) 97.5 F L 97.3 F L 97.8 F Temperature Source Temporal Temporal Temporal Pulse Rate (60-100) 87 90 87 Pulse Location Monitor Monitor Monitor Respiratory Rate (12-18) 18 18 18 Respiratory rate source Observation Observation Observation Oxygen Delivery Method Room Air Room Air Blood Pressure (90/60-120/80) 157/80 H 156/93 H 152/72 H Blood Pressure Mean 105 114 98 Source Monitor Monitor Monitor Position Semi-Fowlers Sitting Semi-Fowlers Blood Pressure Location Left Arm Left Arm Left Arm History Since Last Visit- (Skip if this is Patient's initial visit) Have you changed medications since your No No No last visit? Any new allergies or adverse reactions No No No Had a fall/change in ADL's that may No No No increase risk of falls Signs or symptoms of abuse and/or No No No neglect since last visit Have you been in the hospital since your No No No last visit? Has dressing in place as prescribed Yes Yes Yes Has compression in place as prescribed Yes Yes Yes Has offloadiing in place as prescribed No N/A N/A Experienced any changes in pain level or No No No management Left Footwear Regular Shoe Regular Shoe Right Footwear Regular Shoe Regular Shoe Pain Scale: 0-10 Numeric Is Patient Pain Free? No Yes Yes RLE -Description Burning,Aching -Intensity 5 -Duration (hours) Acute -Pain Behavior Withdrawal from Touch -Pain Aggravating Factors Exercise/ Activity -Alleviating Factors/Interventions Medication -Effectiveness of Alleviating Factor/ Moderately Intervention effective 02/15/24 02/19/24 10:01 11:00 WC - Today's Visit Information Type of service Nurse-only Initial Visit Visit Arrival Mode Ambulatory,Cane Ambulatory,Cane Transfer Assistance None Patient Identification Verified (Name & Yes Yes ) Patient Requires Transmission-Based No Precautions Height and Weight Body Mass Index (BMI) 78.2 78.2 BMI Classification Obese Obese Vital Signs Temperature (97.8 F-99.1 F) 98.9 F 97.0 F L Temperature Source Temporal Temporal Pulse Rate (60-100) 95 85 Pulse Location Monitor Monitor Respiratory Rate (12-18) 18 18 Respiratory rate source Observation Observation Oxygen Delivery Method Room Air Blood Pressure (90/60-120/80) 145/68 H 168/91 H Blood Pressure Mean 93 116 Source Monitor Monitor Position Semi-Fowlers Sitting Blood Pressure Location Left Arm Left Arm History Since Last Visit- (Skip if this is Patient's initial visit) Have you changed medications since your No No last visit? Any new allergies or adverse reactions No No Had a fall/change in ADL's that may No No increase risk of falls Signs or symptoms of abuse and/or No No neglect since last visit Have you been in the hospital since your No No last visit? Has dressing in place as prescribed Yes Yes Has compression in place as prescribed Yes Yes Has offloadiing in place as prescribed No N/A Experienced any changes in pain level or No No management Left Footwear Regular Shoe Right Footwear Regular Shoe Pain Scale: 0-10 Numeric Is Patient Pain Free? Yes Yes RLE -Description -Intensity -Duration (hours) -Pain Behavior -Pain Aggravating Factors -Alleviating Factors/Interventions -Effectiveness of Alleviating Factor/ Intervention WC - Nurse 1 - General Ulcer Measurement Start: 01/29/24 14:11 Freq: Status: Active Protocol: Activity Type Activity Date Activity User E-sign Co-sign Detail Recorded Client Recorded Date Recorded By Document 01/29/24 14:11 RB [id number] 01/29/24 14:15 RB Document 02/05/24 14:21 KW [id number] 02/05/24 14:39 KW Document 02/12/24 14:48 KW [id number] 02/12/24 15:03 KW Document 02/15/24 10:01 RB [id number] 02/15/24 10:07 RB Document 02/19/24 11:00 KW [id number] 02/19/24 11:15 KW Edit Result 02/19/24 11:00 KW (1) [id number] 02/19/24 11:16 KW (1) Right Calf (cm) => 53.5 Right Ankle (cm) => 34 01/29/24 02/05/24 02/12/24 14:11 14:21 14:48 Wound Center Nurse 1 right lower leg circumferential -Combined with other wound No -Current Size (cm) - Length 22.2 0 -Current Size (cm) - Width 8 0 -Current Size (cm) - Depth 0.1 0 -Total Square Cm 177.6 0 -Tunneling No -Undermining/Tunneling No -Circular Undermining No -Exudate Amt Medium None Present -Exudate Type Serosanguineous -Wound Margin Distinct, Distinct, Outline Outline Attached Attached -Granulation Amt Medium (34-66%) Large (67-100%) -Granulation Quality [place]Red -Slough/Fibrin Yes -Necrosis Amt Medium (34-66%) -Necrotic Tissue Type Adherent Slough -Structure Exposed N/A -Texture (Callie-wound Skin Appearance) Assessed Assessed -Moisture (Callie-wound Skin Appearance) Assessed, Assessed Weeping -Color (Callie-wound Skin Appearance) Assessed Assessed -Temperature (Callie-wound Skin No Abnormality No Abnormality Appearance) (Pt Warm) (Pt Warm) -Tenderness on Palpation (Callie-wound No No Skin Appearance) -Ulcer Cleansing Wound Cleanser Soap and Water -Foul Odor after Cleansing No No -Anesthetic Used 4% Lidocaine Solution right LE Posterior -Current Size (cm) - Length 3.5 2 -Current Size (cm) - Width 3 3.5 -Current Size (cm) - Depth 0.1 0.1 -Total Square Cm 10.5 7.0 -Date of Last Picture (Recall this 02/05/24 field) -Exudate Amt Small Medium -Exudate Type Serosanguineous Serosanguineous -Wound Margin Distinct, Distinct, Outline Outline Attached Attached -Granulation Amt Large (67-100%) Large (67-100%) -Granulation Quality [place] Red -Slough/Fibrin -Necrosis Amt Small (1-33%) -Necrotic Tissue Type Adherent Slough -Structure Exposed -Texture (Callie-wound Skin Appearance) Assessed Assessed -Moisture (Callie-wound Skin Appearance) Assessed Assessed,Dry/ Scaly -Color (Callie-wound Skin Appearance) Assessed Assessed, Hemosiderin Staining -Temperature (Callie-wound Skin No Abnormality No Abnormality Appearance) (Pt Warm) (Pt Warm) -Tenderness on Palpation (Callie-wound No Yes Skin Appearance) -Ulcer Cleansing Soap and Water Soap and Water -Foul Odor after Cleansing No -Anesthetic Used 4% Lidocaine 5% Lidocaine Solution Gel right LE Anterior -Current Size (cm) - Length 4.5 0.1 -Current Size (cm) - Width 2 0.1 -Current Size (cm) - Depth 0.1 0.1 -Total Square Cm 9.0 0.01 -Date of Last Picture (Recall this 02/05/24 field) -Exudate Amt Medium None Present -Exudate Type Serosanguineous -Wound Margin Distinct, Distinct, Outline Outline Attached Attached -Granulation Amt Large (67-100%) -Granulation Quality [place],Red -Slough/Fibrin -Necrosis Amt Small (1-33%) -Necrotic Tissue Type Adherent Slough -Structure Exposed -Texture (Callie-wound Skin Appearance) Assessed Assessed -Moisture (Callie-wound Skin Appearance) Assessed, Assessed Maceration -Color (Callie-wound Skin Appearance) Assessed Assessed, Hemosiderin Staining -Temperature (Callie-wound Skin No Abnormality No Abnormality Appearance) (Pt Warm) (Pt Warm) -Tenderness on Palpation (Callie-wound No No Skin Appearance) -Ulcer Cleansing Soap and Water Soap and Water -Foul Odor after Cleansing No No -Anesthetic Used 4% Lidocaine Solution Lower Limb Edema Present Yes Right Calf (cm) 71 68.5 Right Ankle (cm) 34.5 35 Left Calf (cm) 64 Left Ankle (cm) 32.5 02/15/24 02/19/24 10:01 11:00 Wound Center Nurse 1 right lower leg circumferential -Combined with other wound -Current Size (cm) - Length -Current Size (cm) - Width -Current Size (cm) - Depth -Total Square Cm -Tunneling -Undermining/Tunneling -Circular Undermining -Exudate Amt -Exudate Type -Wound Margin -Granulation Amt -Granulation Quality -Slough/Fibrin -Necrosis Amt -Necrotic Tissue Type -Structure Exposed -Texture (Callie-wound Skin Appearance) -Moisture (Callie-wound Skin Appearance) -Color (Callie-wound Skin Appearance) -Temperature (Callie-wound Skin Appearance) -Tenderness on Palpation (Callie-wound Skin Appearance) -Ulcer Cleansing -Foul Odor after Cleansing -Anesthetic Used right LE Posterior -Current Size (cm) - Length 1.2 -Current Size (cm) - Width 2 -Current Size (cm) - Depth 0.1 -Total Square Cm 2.4 -Date of Last Picture (Recall this 02/19/24 field) -Exudate Amt Medium -Exudate Type Serosanguineous -Wound Margin Distinct, Outline Attached -Granulation Amt Medium (34-66%) Large (67-100%) -Granulation Quality [place] Red -Slough/Fibrin Yes -Necrosis Amt Small (1-33%) -Necrotic Tissue Type Adherent Slough -Structure Exposed N/A -Texture (Callie-wound Skin Appearance) Assessed Assessed -Moisture (Callie-wound Skin Appearance) Dry/Scaly Assessed -Color (Callie-wound Skin Appearance) Assessed Assessed -Temperature (Callie-wound Skin No Abnormality No Abnormality Appearance) (Pt Warm) (Pt Warm) -Tenderness on Palpation (Callie-wound No No Skin Appearance) -Ulcer Cleansing Wound Cleanser Soap and Water -Foul Odor after Cleansing No No -Anesthetic Used 5% Lidocaine Gel right LE Anterior -Current Size (cm) - Length 0.1 -Current Size (cm) - Width 0.1 -Current Size (cm) - Depth 0.1 -Total Square Cm 0.01 -Date of Last Picture (Recall this 02/19/24 field) -Exudate Amt Medium None Present -Exudate Type Serosanguineous -Wound Margin Distinct, Outline Attached -Granulation Amt Medium (34-66%) -Granulation Quality [place] -Slough/Fibrin Yes -Necrosis Amt Small (1-33%) -Necrotic Tissue Type Adherent Slough -Structure Exposed N/A -Texture (Callie-wound Skin Appearance) Assessed -Moisture (Callie-wound Skin Appearance) Assessed -Color (Callie-wound Skin Appearance) Assessed -Temperature (Callie-wound Skin No Abnormality Appearance) (Pt Warm) -Tenderness on Palpation (Callie-wound No Skin Appearance) -Ulcer Cleansing Soap and Water -Foul Odor after Cleansing No -Anesthetic Used 5% Lidocaine Gel Lower Limb Edema Present Yes Right Calf (cm) 57.3 53.5 Right Ankle (cm) 31.5 34 Left Calf (cm) 60 Left Ankle (cm) 36.2 WC - Nurse 2 - General Ulcer CM Notes Start: 01/29/24 14:11 Freq: Status: Active Protocol: Activity Type Activity Date Activity User E-sign Co-sign Detail Recorded Client Recorded Date Recorded By Document 01/29/24 14:27 DS [id number] 01/29/24 14:32 DS Edit Result 01/29/24 14:27 DS (1) [id number] 01/29/24 16:04 DS Document 02/05/24 14:56 DS [id number] 02/05/24 14:57 DS Document 02/12/24 15:20 DS [id number] 02/12/24 15:25 DS Document 02/19/24 11:30 DS [id number] 02/19/24 11:35 DS (1) right LE Anterior - Debridement, SubQ, ea addt'l 20sq cm => 1 or part thereof 01/29/24 02/05/24 02/12/24 14:27 14:56 15:20 Wound Center Nurse 2 right LE Posterior -Time 14:23 14:56 15:20 -Correct Patient Yes Yes Yes -Correct Side, Site, Position Yes Yes -Correct Procedure Yes Yes -Procedure Performed Yes No Yes -Type of Procedure Debridement Debridement -Clinical Debridement Subcutaneous Subcutaneous -Tissue Removed Subcutaneous Subcutaneous -Post Debridement (cm) - Length 4.0 1.2 1.5 -Post Debridement (cm) - Width 4.0 4.0 4.5 -Post Debridement (cm) - Depth 0.1 0.1 0.1 -Total Square (Post) (cm) 16.00 4.80 6.75 -Area of Debridement (cm) - Length 4.0 1.2 1.5 -Area of Debridement (cm) - Width 4.0 4.0 4.5 -Total Square (Area) (cm) 16.00 4.80 6.75 -Tunneling No No No -Undermining/Tunneling No No No -Circular Undermining No No No -Wound/Ulcer Outcome Not Healed Not Healed Not Healed -Ulcer Cleansing Rinsed/ Rinsed/ Irrigated with Irrigated with Saline Saline -Bioengineered Tissue No No -Bleeding Controlled with Pressure Pressure -Treatment Response Procedure Procedure Tolerated Well Tolerated Well -Debridement - Subq, 1st 20sq cm No Yes right LE Anterior -Time 14:23 14:57 15:20 -Correct Patient Yes Yes Yes -Correct Side, Site, Position Yes -Correct Procedure Yes -Procedure Performed Yes No No -Type of Procedure Debridement -Clinical Debridement Subcutaneous -Tissue Removed Subcutaneous -Post Debridement (cm) - Length 5.0 4.0 0.1 -Post Debridement (cm) - Width 2.6 1.5 0.1 -Post Debridement (cm) - Depth 0.1 0.1 0.1 -Total Square (Post) (cm) 13.00 6.00 0.01 -Area of Debridement (cm) - Length 5.0 4.0 0.1 -Area of Debridement (cm) - Width 2.6 1.5 0.1 -Total Square (Area) (cm) 13.00 6.00 0.01 -Tunneling No No -Undermining/Tunneling No No -Circular Undermining No No -Wound/Ulcer Outcome Not Healed Not Healed Not Healed -Ulcer Cleansing Rinsed/ Irrigated with Saline -Bioengineered Tissue No -Bleeding Controlled with Pressure -Treatment Response Procedure Tolerated Well -Debridement - Subq, 1st 20sq cm Yes -Debridement, SubQ, ea addt'l 20sq cm 1 or part thereof Pain Scale: 0-10 Numeric Is Patient Pain Free? Yes Yes No RLE -Description Aching -Intensity 5 -Duration (hours) Chronic -Pain Aggravating Factors Debridement -Alleviating Factors/Interventions Will continue to monitor, Emotional Support 02/19/24 11:30 Wound Center Nurse 2 right LE Posterior -Time 11:30 -Correct Patient Yes -Correct Side, Site, Position Yes -Correct Procedure Yes -Procedure Performed Yes -Type of Procedure Debridement -Clinical Debridement Subcutaneous -Tissue Removed Subcutaneous -Post Debridement (cm) - Length 1.1 -Post Debridement (cm) - Width 2.5 -Post Debridement (cm) - Depth 0.1 -Total Square (Post) (cm) 2.75 -Area of Debridement (cm) - Length 1.1 -Area of Debridement (cm) - Width 2.5 -Total Square (Area) (cm) 2.75 -Tunneling No -Undermining/Tunneling No -Circular Undermining No -Wound/Ulcer Outcome Not Healed -Ulcer Cleansing Rinsed/ Irrigated with Saline -Bioengineered Tissue No -Bleeding Controlled with Pressure -Treatment Response Procedure Tolerated Well -Debridement - Subq, 1st 20sq cm Yes right LE Anterior -Time 11:30 -Correct Patient Yes -Correct Side, Site, Position -Correct Procedure -Procedure Performed No -Type of Procedure -Clinical Debridement -Tissue Removed -Post Debridement (cm) - Length -Post Debridement (cm) - Width -Post Debridement (cm) - Depth -Total Square (Post) (cm) -Area of Debridement (cm) - Length -Area of Debridement (cm) - Width -Total Square (Area) (cm) -Tunneling -Undermining/Tunneling -Circular Undermining -Wound/Ulcer Outcome Healed- Epithelialized -Ulcer Cleansing -Bioengineered Tissue -Bleeding Controlled with -Treatment Response -Debridement - Subq, 1st 20sq cm -Debridement, SubQ, ea addt'l 20sq cm or part thereof Pain Scale: 0-10 Numeric Is Patient Pain Free? Yes RLE -Description -Intensity -Duration (hours) -Pain Aggravating Factors -Alleviating Factors/Interventions WC - Nurse 3 - General Ulcer D/C NN Start: 01/29/24 14:11 Freq: Status: Active Protocol: Activity Type Activity Date Activity User E-sign Co-sign Detail Recorded Client Recorded Date Recorded By Document 01/29/24 14:52 KW [id number] 01/29/24 14:53 KW Document 02/01/24 09:52 DS [id number] 02/01/24 10:13 DS Document 02/12/24 16:15 RB [id number] 02/12/24 16:16 RB Document 02/15/24 10:01 RB [id number] 02/15/24 10:07 RB Document 02/19/24 12:11 RB [id number] 02/19/24 12:14 RB 01/29/24 02/01/24 02/12/24 14:52 09:52 16:15 Wound Care Center Nurse 3 right LE Posterior -Primary Dressing Applied Optilok 6.5x10 -Optilok 6.5x10 1 Left -Multi-Layered Wrap Application right #2 -Multi-Layered Wrap Application Multi-Layer Multi-Layer Comp - Right ($ Comp - Right ($ ) ) -Other 2 multi layer used Right -Multi-Layered Wrap Application Unna Boot - Unna Boot - Unna Boot - Right ($) Right ($) Right ($) Treatment Response Procedure Tolerated Well Vital Signs Temperature (97.8 F-99.1 F) Temperature Source Pulse Rate (60-100) Pulse Location Respiratory Rate (12-18) Respiratory rate source Blood Pressure (90/60-120/80) Blood Pressure Mean Source Position Blood Pressure Location Pain Scale: 0-10 Numeric Is Patient Pain Free? Yes Yes Yes WC - Visit Discharge Discharge Condition Stable Stable Stable Ambulatory Status Ambulatory,Cane Ambulatory Ambulatory,Cane Transportation Private Auto Private Auto Private Auto Medication Reconcilliation completed & No provided to patient/care provider Clinical Summary of Care Provided Yes Notes: 02/15/24 02/19/24 10:01 12:11 Wound Care Center Nurse 3 right LE Posterior -Primary Dressing Applied Optilok 6.5x10 Optilok 6.5x10 -Optilok 6.5x10 1 1 Left -Multi-Layered Wrap Application Multi-Layer Comp - Bilat ($ ) right #2 -Multi-Layered Wrap Application -Other Right -Multi-Layered Wrap Application Multi-Layer Unna Boot - Comp - Right ($ Right ($) ) Treatment Response Procedure Procedure Tolerated Well Tolerated Well Vital Signs Temperature (97.8 F-99.1 F) 98.9 F Temperature Source Temporal Pulse Rate (60-100) 95 Pulse Location Monitor Respiratory Rate (12-18) 18 Respiratory rate source Observation Blood Pressure (90/60-120/80) 145/68 H Blood Pressure Mean 93 Source Monitor Position Semi-Fowlers Blood Pressure Location Left Arm Pain Scale: 0-10 Numeric Is Patient Pain Free? Yes Yes WC - Visit Discharge Discharge Condition Stable Stable Ambulatory Status Ambulatory,Cane Ambulatory Transportation Private Auto Private Auto Medication Reconcilliation completed & No No provided to patient/care provider Clinical Summary of Care Provided Yes Yes Notes: circaid RIGHT UNNA AND measurements 3M OVER . AND Left calf 60, LEFT 3M ankle 36.2 , length 43.5 Right calf 57.3 , ankle 31.5 , length 42 Charges/Coding Procedures Integumentary 111xxx-113xx: [id number] Crys subq tissue 20 sq cm/< Assessment/Plan Assessment/Plan (1) Venous ulcer of right leg: CODE(S): I83.019 - Varicose veins of right lower extremity with ulcer of unspecified site; L97.919 - Non-pressure chronic ulcer of unspecified part of right lower leg with unspecified severity (2) Cellulitis of right leg: CODE(S): L03.115 - Cellulitis of right lower limb (3) Venous stasis dermatitis of right lower extremity: CODE(S): I87.2 - Venous insufficiency (chronic) (peripheral) (4) Bilateral lower extremity edema: CODE(S): R60.0 - Localized edema (5) Lymphedema of both lower extremities: CODE(S): I89.0 - Lymphedema, not elsewhere classified (6) 1+ pitting edema: CODE(S): R60.9 - Edema, unspecified (7) Morbid obesity with BMI of 70 and over, adult: CODE(S): E66.01 - Morbid (severe) obesity due to excess calories; Z68.45 - Body mass index [BMI] 70 or greater, adult PLAN: Plan This is a 33-year-old morbidly obese female who presented with a large venous ulceration in the gaiter area of her distal right lower extremity. It is associated with venous stasis dermatitis. The patient has finished her course of oral Keflex, and the signs of cellulitis have abated. The patient's BMI is 78.2. She denies significant other medical problems, and she is not a smoker. A lengthy discussion has been undertaken with the patient regarding the measures appropriate to the management of her venous disease, which is suspected to be the etiology of her presenting symptoms and manifestations. Weight loss has been recommended, though not likely to be of major impact in the short-term. Nonetheless, we have arranged consultation with a dietitian, who has met with the patient to provide nutritional recommendations and guidance. The patient has been advised to elevate her lower extremities as much as possible, which is to be implemented to heart level, or higher. She has been encouraged to sleep on a flat mattress at night. She did not have a bed at her apartment, and measures were undertaken to assist the patient in procuring a bed. A hospital bed has been delivered to her home, which now allows her to recline and elevate her legs as advised. The patient has been encouraged to elevate her lower extremities during both nighttime and daytime hours. Prolonged idle standing and sitting have been discouraged. Activity has been encouraged. The benefits of implementing the calf muscle pumps with activity have been explained. We are to continue compression to the right lower extremity by means of a multilayer Unna boot compression wrap. The patient is to return in 3 days for a replacement of the Unna boot compression wrap, and a regimen of twice weekly Unna boot applications. A 3M 2 layer compression wrap is to be applied to the left lower extremity, as compression is warranted despite a lack of skin changes. The patient has been measured for CircAid Velcro compression garments, as a means of adequate, long-term compression will be required by the patient. However, the patient's insurance has denied the benefit of CircAid Velcro compression garments. Therefore, standard graduated compression stockings of 20 to 30 mmHg are the alternative, and are to be prescribed for the patient at her next visit. The patient is to return in 1 week for reevaluation. Total time: 24 minutes
--- NOTE | 2024-02-21 09:19 | WC ---
PHOTO 02/19/24 RLE POST
--- NOTE | 2024-02-21 09:24 | WC ---
PHOTO 02/19/24 RIGHT LE ANTERIOR
[2024-02-26 10:07] VITALS: BP 170/74; PULSE 79; RESP 18; TEMP 36.1; BMI 78.2
--- NOTE | 2024-03-01 16:18 | PCM.WC.HP ---
History of Present Illness Date of Service: 02/26/24 Chief Complaint: Venous ulceration, cellulitis, chronic venous insufficiency, venous stasis dermatitis, pitting edema, lymphedema - right lower extremity History of Wound: This is a morbidly obese 33-year-old female who presented with venous ulcerations and cellulitis involving her right lower extremity. The patient also suffers from chronic venous insufficiency, and venous stasis dermatitis in the right lower extremity. She also has pitting edema and lymphedema in her lower extremities bilaterally. According to the patient, she had the ulceration and dermatitic changes in her right lower extremity for approximately 3 months. Only recently did she seek medical attention. She was seen and evaluated in the [facility] Emergency Department on January 10, 2024, where she was placed on Keflex 500 mg p.o. twice daily x 10 days in treatment for right lower extremity cellulitis. She has completed the course of antibiotics. The patient was evaluated at the [facility] on January 17, 2024, where she was referred for definitive management at the [facility]. At her visit to the [facility], betadine was applied to her right lower extremity ulceration, in addition to an Dwight wrap. The patient is morbidly obese, with a BMI of 78.2. 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. She lives alone, with very few resources. She does not have a bed, and sleeps in a recliner. She states that her recliner is broken, and that her legs cannot be elevated. The patient lives alone, and does not have family or friends to assist her with her daily needs. She denied a history of significant medical problems such as myocardial infarction, congestive heart failure, diabetes mellitus, pulmonary disease, renal disease, thyroid disease, and cerebrovascular disease. She denied prior surgical procedures. She does not use tobacco products. [facility] Medical History (Updated 03/01/24 @ 16:[address] Mark Pompa MD) Non-pressure chronic ulcer right lower leg, limited to breakdown skin Morbid obesity with BMI of 70 and over, adult Venous stasis dermatitis of right lower extremity Venous ulcer of right leg Cellulitis of right leg 1+ pitting edema Lymphedema of both lower extremities Bilateral lower extremity edema Home Medications ?Medication ?Instructions ?Recorded ?Last Taken ?Type naproxen 500 mg tablet 500 mg PO BID PRN #20 tabs 02/02/18 Unknown Rx cephalexin 500 mg capsule 500 mg PO Q6 #40 CAPSULES 01/10/24 Unknown Rx Allergy/AdvReac Type Severity Reaction Status Date / Time No Known Allergies Allergy Verified 02/16/21 13:44 Surgical History no surgical history Social History Smoking Status: Never smoker Vital Signs Vital Signs Vital Signs: Weight Weight: 500 lb Body Mass Index (BMI) 78.2 Physical Exam Const alert, oriented x3, no apparent distress, no limitations and well nourished Constitutional Narrative: The patient is morbidly obese, with a BMI of 78.2 General Appearance: cooperative, comfortable, well kempt and well developed Orientation / Consciousness: awake, oriented to person, oriented to place and oriented to time Exam Limitations: no limitations HEENT normocephalic, head/scalp atraumatic and hearing grossly normal bilaterally Head and Scalp: normal to inspection, normocephalic and atraumatic Face and Sinus: normal facial exam Nose: external nose normal External Ear: external ears normal Eyes EOMs intact bilaterally General Eye: normal appearance of both eyes Neck full ROM Resp normal respiratory effort, normal air movement, no retractions and no use of accessory muscles Effort and Inspection: able to speak in complete sentences GI Inspection: pannus present Extremity no calf tenderness General Extremity: Negative for clubbing or cyanosis Skin Wound Narrative: Swelling, edema, and lymphedema are noted in the lower extremities bilaterally. The amount of swelling and edema appear to be diminishing bilaterally. Cellulitis in the right lower extremity appears to have resolved. The venous stasis dermatitis in the right lower extremity is markedly improved. Venous ulcerations persist in the gaiter area of the right lower extremity, though significant improvement is noted. Only a small clustered ulceration remains on the posterior aspect of the patient's right distal calf. The ulceration previously noted anteriorly remains completely healed. Dimensions of the remaining ulcerations are documented elsewhere. There has been significant improvement in the dermatitis and the nonviable, sloughing epidermis in this area. The remaining clustered ulceration extends through all layers of the dermis and into the subcutaneous tissues. There are increasing areas of healthy, pink granulation tissue, with peripheral epithelialization. There is no sign of infection or cellulitis. Wound margins are well beveled. Neuro oriented x3, CN's II-XII intact bilaterally, moves all extremities, no focal motor deficits and no sensory deficits noted Sensorium / Orientation: awake, alert, oriented to person, oriented to place and oriented to time Cranial Nerves: CN normal except as noted Speech: speech normal Psych Appearance: grossly normal and appropriate Attitude: calm Activity / Motor Behavior: appropriate eye contact Speech: normal speech Mood & Affect: euthymic mood Thought Process: normal thought process Thought Content: normal thought content Attention / Concentration: attention grossly intact Debridement Note Debridement Note Wound debrided: Right posterior calf ulceration Laterality: Right Type of Debridement: Selective debridement Anesthesia Used: 5% Lidocaine Gel Depth: Down to and including healthy tissue Percentage of wound debrided: 100 Instrument Used: 3mm curette Tissue Removed: Bioburden and devitalized tissue Severity: Limited To Skin Breakdown Amount of bleeding with debridement: Mild Bleeding Controlled with: Compression and gauze Patient tolerated procedure: Patient tolerated procedure well Post-Debridement Measurements and Additional Note: Post-Debridement Measurements/Treatment - Nurse 1 - General Ulcer Assessment Start: 01/29/24 14:11 Freq: Status: Active Protocol: LACEY Activity Type Activity Date Activity User E-sign Co-sign Detail Recorded Client Recorded Date Recorded By Document 01/29/24 14:11 RB [id number] 01/29/24 14:15 RB Document 02/05/24 14:21 KW [id number] 02/05/24 14:39 KW Document 02/12/24 14:48 KW [id number] 02/12/24 15:03 KW Document 02/15/24 10:01 RB [id number] 02/15/24 10:07 RB Document 02/19/24 11:00 KW [id number] 02/19/24 11:15 KW 01/29/24 02/05/24 02/12/24 14:11 14:21 14:48 - Today's Visit Information Type of service Follow-up Visit Follow-up Visit Follow-up Visit (Physician/MEDICAL STAFF MANAGER (Physician/MEDICAL STAFF MANAGER (Physician/MEDICAL STAFF MANAGER ) ) ) Arrival Mode Ambulatory Ambulatory,Cane Ambulatory Transfer Assistance None Patient Identification Verified (Name & Yes Yes Yes ) Patient Requires Transmission-Based No Precautions Height and Weight Body Mass Index (BMI) 78.2 78.2 78.2 BMI Classification Obese Obese Obese Vital Signs Temperature (97.8 F-99.1 F) 97.5 F L 97.3 F L 97.8 F Temperature Source Temporal Temporal Temporal Pulse Rate (60-100) 87 90 87 Pulse Location Monitor Monitor Monitor Respiratory Rate (12-18) 18 18 18 Respiratory rate source Observation Observation Observation Oxygen Delivery Method Room Air Room Air Blood Pressure (90/60-120/80) 157/80 H 156/93 H 152/72 H Blood Pressure Mean 105 114 98 Source Monitor Monitor Monitor Position Semi-Fowlers Sitting Semi-Fowlers Blood Pressure Location Left Arm Left Arm Left Arm History Since Last Visit- (Skip if this is Patient's initial visit) Have you changed medications since your No No No last visit? Any new allergies or adverse reactions No No No Had a fall/change in ADL's that may No No No increase risk of falls Signs or symptoms of abuse and/or No No No neglect since last visit Have you been in the hospital since your No No No last visit? Has dressing in place as prescribed Yes Yes Yes Has compression in place as prescribed Yes Yes Yes Has offloadiing in place as prescribed No N/A N/A Experienced any changes in pain level or No No No management Left Footwear Regular Shoe Regular Shoe Right Footwear Regular Shoe Regular Shoe Pain Scale: 0-10 Numeric Is Patient Pain Free? No Yes Yes RLE -Description Burning,Aching -Intensity 5 -Duration (hours) Acute -Pain Behavior Withdrawal from Touch -Pain Aggravating Factors Exercise/ Activity -Alleviating Factors/Interventions Medication -Effectiveness of Alleviating Factor/ Moderately Intervention effective 02/15/24 02/19/24 10:01 11:00 WC - Today's Visit Information Type of service Nurse-only Initial Visit Visit Arrival Mode Ambulatory,Cane Ambulatory,Cane Transfer Assistance None Patient Identification Verified (Name & Yes Yes ) Patient Requires Transmission-Based No Precautions Height and Weight Body Mass Index (BMI) 78.2 78.2 BMI Classification Obese Obese Vital Signs Temperature (97.8 F-99.1 F) 98.9 F 97.0 F L Temperature Source Temporal Temporal Pulse Rate (60-100) 95 85 Pulse Location Monitor Monitor Respiratory Rate (12-18) 18 18 Respiratory rate source Observation Observation Oxygen Delivery Method Room Air Blood Pressure (90/60-120/80) 145/68 H 168/91 H Blood Pressure Mean 93 116 Source Monitor Monitor Position Semi-Fowlers Sitting Blood Pressure Location Left Arm Left Arm History Since Last Visit- (Skip if this is Patient's initial visit) Have you changed medications since your No No last visit? Any new allergies or adverse reactions No No Had a fall/change in ADL's that may No No increase risk of falls Signs or symptoms of abuse and/or No No neglect since last visit Have you been in the hospital since your No No last visit? Has dressing in place as prescribed Yes Yes Has compression in place as prescribed Yes Yes Has offloadiing in place as prescribed No N/A Experienced any changes in pain level or No No management Left Footwear Regular Shoe Right Footwear Regular Shoe Pain Scale: 0-10 Numeric Is Patient Pain Free? Yes Yes RLE -Description -Intensity -Duration (hours) -Pain Behavior -Pain Aggravating Factors -Alleviating Factors/Interventions -Effectiveness of Alleviating Factor/ Intervention WC - Nurse 1 - General Ulcer Measurement Start: 01/29/24 14:11 Freq: Status: Active Protocol: Activity Type Activity Date Activity User E-sign Co-sign Detail Recorded Client Recorded Date Recorded By Document 01/29/24 14:11 RB [id number] 01/29/24 14:15 RB Document 02/05/24 14:21 KW [id number] 02/05/24 14:39 KW Document 02/12/24 14:48 KW [id number] 02/12/24 15:03 KW Document 02/15/24 10:01 RB [id number] 02/15/24 10:07 RB Document 02/19/24 11:00 KW [id number] 02/19/24 11:15 KW Edit Result 02/19/24 11:00 KW (1) [id number] 02/19/24 11:16 KW (1) Right Calf (cm) => 53.5 Right Ankle (cm) => 34 01/29/24 02/05/24 02/12/24 14:11 14:21 14:48 Wound Center Nurse 1 right lower leg circumferential -Combined with other wound No -Current Size (cm) - Length 22.2 0 -Current Size (cm) - Width 8 0 -Current Size (cm) - Depth 0.1 0 -Total Square Cm 177.6 0 -Tunneling No -Undermining/Tunneling No -Circular Undermining No -Exudate Amt Medium None Present -Exudate Type Serosanguineous -Wound Margin Distinct, Distinct, Outline Outline Attached Attached -Granulation Amt Medium (34-66%) Large (67-100%) -Granulation Quality Waldron Waldron,Red -Slough/Fibrin Yes -Necrosis Amt Medium (34-66%) -Necrotic Tissue Type Adherent Slough -Structure Exposed N/A -Texture (Callie-wound Skin Appearance) Assessed Assessed -Moisture (Callie-wound Skin Appearance) Assessed, Assessed Weeping -Color (Callie-wound Skin Appearance) Assessed Assessed -Temperature (Callie-wound Skin No Abnormality No Abnormality Appearance) (Pt Warm) (Pt Warm) -Tenderness on Palpation (Callie-wound No No Skin Appearance) -Ulcer Cleansing Wound Cleanser Soap and Water -Foul Odor after Cleansing No No -Anesthetic Used 4% Lidocaine Solution right LE Posterior -Current Size (cm) - Length 3.5 2 -Current Size (cm) - Width 3 3.5 -Current Size (cm) - Depth 0.1 0.1 -Total Square Cm 10.5 7.0 -Date of Last Picture (Recall this 02/05/24 field) -Exudate Amt Small Medium -Exudate Type Serosanguineous Serosanguineous -Wound Margin Distinct, Distinct, Outline Outline Attached Attached -Granulation Amt Large (67-100%) Large (67-100%) -Granulation Quality Waldron,Red Red -Slough/Fibrin -Necrosis Amt Small (1-33%) -Necrotic Tissue Type Adherent Slough -Structure Exposed -Texture (Callie-wound Skin Appearance) Assessed Assessed -Moisture (Callie-wound Skin Appearance) Assessed Assessed,Dry/ Scaly -Color (Callie-wound Skin Appearance) Assessed Assessed, Hemosiderin Staining -Temperature (Callie-wound Skin No Abnormality No Abnormality Appearance) (Pt Warm) (Pt Warm) -Tenderness on Palpation (Callie-wound No Yes Skin Appearance) -Ulcer Cleansing Soap and Water Soap and Water -Foul Odor after Cleansing No -Anesthetic Used 4% Lidocaine 5% Lidocaine Solution Gel right LE Anterior -Current Size (cm) - Length 4.5 0.1 -Current Size (cm) - Width 2 0.1 -Current Size (cm) - Depth 0.1 0.1 -Total Square Cm 9.0 0.01 -Date of Last Picture (Recall this 02/05/24 field) -Exudate Amt Medium None Present -Exudate Type Serosanguineous -Wound Margin Distinct, Distinct, Outline Outline Attached Attached -Granulation Amt Large (67-100%) -Granulation Quality Waldron,Red -Slough/Fibrin -Necrosis Amt Small (1-33%) -Necrotic Tissue Type Adherent Slough -Structure Exposed -Texture (Callie-wound Skin Appearance) Assessed Assessed -Moisture (Callie-wound Skin Appearance) Assessed, Assessed Maceration -Color (Callie-wound Skin Appearance) Assessed Assessed, Hemosiderin Staining -Temperature (Callie-wound Skin No Abnormality No Abnormality Appearance) (Pt Warm) (Pt Warm) -Tenderness on Palpation (Callie-wound No No Skin Appearance) -Ulcer Cleansing Soap and Water Soap and Water -Foul Odor after Cleansing No No -Anesthetic Used 4% Lidocaine Solution Lower Limb Edema Present Yes Right Calf (cm) 71 68.5 Right Ankle (cm) 34.5 35 Left Calf (cm) 64 Left Ankle (cm) 32.5 02/15/24 02/19/24 10:01 11:00 Wound Center Nurse 1 right lower leg circumferential -Combined with other wound -Current Size (cm) - Length -Current Size (cm) - Width -Current Size (cm) - Depth -Total Square Cm -Tunneling -Undermining/Tunneling -Circular Undermining -Exudate Amt -Exudate Type -Wound Margin -Granulation Amt -Granulation Quality -Slough/Fibrin -Necrosis Amt -Necrotic Tissue Type -Structure Exposed -Texture (Callie-wound Skin Appearance) -Moisture (Callie-wound Skin Appearance) -Color (Callie-wound Skin Appearance) -Temperature (Callie-wound Skin Appearance) -Tenderness on Palpation (Callie-wound Skin Appearance) -Ulcer Cleansing -Foul Odor after Cleansing -Anesthetic Used right LE Posterior -Current Size (cm) - Length 1.2 -Current Size (cm) - Width 2 -Current Size (cm) - Depth 0.1 -Total Square Cm 2.4 -Date of Last Picture (Recall this 02/19/24 field) -Exudate Amt Medium -Exudate Type Serosanguineous -Wound Margin Distinct, Outline Attached -Granulation Amt Medium (34-66%) Large (67-100%) -Granulation Quality Waldron Red -Slough/Fibrin Yes -Necrosis Amt Small (1-33%) -Necrotic Tissue Type Adherent Slough -Structure Exposed N/A -Texture (Callie-wound Skin Appearance) Assessed Assessed -Moisture (Callie-wound Skin Appearance) Dry/Scaly Assessed -Color (Callie-wound Skin Appearance) Assessed Assessed -Temperature (Callie-wound Skin No Abnormality No Abnormality Appearance) (Pt Warm) (Pt Warm) -Tenderness on Palpation (Callie-wound No No Skin Appearance) -Ulcer Cleansing Wound Cleanser Soap and Water -Foul Odor after Cleansing No No -Anesthetic Used 5% Lidocaine Gel right LE Anterior -Current Size (cm) - Length 0.1 -Current Size (cm) - Width 0.1 -Current Size (cm) - Depth 0.1 -Total Square Cm 0.01 -Date of Last Picture (Recall this 02/19/24 field) -Exudate Amt Medium None Present -Exudate Type Serosanguineous -Wound Margin Distinct, Outline Attached -Granulation Amt Medium (34-66%) -Granulation Quality Waldron -Slough/Fibrin Yes -Necrosis Amt Small (1-33%) -Necrotic Tissue Type Adherent Slough -Structure Exposed N/A -Texture (Callie-wound Skin Appearance) Assessed -Moisture (Callie-wound Skin Appearance) Assessed -Color (Callie-wound Skin Appearance) Assessed -Temperature (Callie-wound Skin No Abnormality Appearance) (Pt Warm) -Tenderness on Palpation (Callie-wound No Skin Appearance) -Ulcer Cleansing Soap and Water -Foul Odor after Cleansing No -Anesthetic Used 5% Lidocaine Gel Lower Limb Edema Present Yes Right Calf (cm) 57.3 53.5 Right Ankle (cm) 31.5 34 Left Calf (cm) 60 Left Ankle (cm) 36.2 WC - Nurse 2 - General Ulcer CM Notes Start: 01/29/24 14:11 Freq: Status: Active Protocol: Activity Type Activity Date Activity User E-sign Co-sign Detail Recorded Client Recorded Date Recorded By Document 01/29/24 14:27 DS [id number] 01/29/24 14:32 DS Edit Result 01/29/24 14:27 DS (1) [id number] 01/29/24 16:04 DS Document 02/05/24 14:56 DS [id number] 02/05/24 14:57 DS Document 02/12/24 15:20 DS [id number] 02/12/24 15:25 DS Document 02/19/24 11:30 DS [id number] 02/19/24 11:35 DS (1) right LE Anterior - Debridement, SubQ, ea addt'l 20sq cm => 1 or part thereof 01/29/24 02/05/24 02/12/24 14:27 14:56 15:20 Wound Center Nurse 2 right LE Posterior -Time 14:23 14:56 15:20 -Correct Patient Yes Yes Yes -Correct Side, Site, Position Yes Yes -Correct Procedure Yes Yes -Procedure Performed Yes No Yes -Type of Procedure Debridement Debridement -Clinical Debridement Subcutaneous Subcutaneous -Tissue Removed Subcutaneous Subcutaneous -Post Debridement (cm) - Length 4.0 1.2 1.5 -Post Debridement (cm) - Width 4.0 4.0 4.5 -Post Debridement (cm) - Depth 0.1 0.1 0.1 -Total Square (Post) (cm) 16.00 4.80 6.75 -Area of Debridement (cm) - Length 4.0 1.2 1.5 -Area of Debridement (cm) - Width 4.0 4.0 4.5 -Total Square (Area) (cm) 16.00 4.80 6.75 -Tunneling No No No -Undermining/Tunneling No No No -Circular Undermining No No No -Wound/Ulcer Outcome Not Healed Not Healed Not Healed -Ulcer Cleansing Rinsed/ Rinsed/ Irrigated with Irrigated with Saline Saline -Bioengineered Tissue No No -Bleeding Controlled with Pressure Pressure -Treatment Response Procedure Procedure Tolerated Well Tolerated Well -Debridement - Subq, 1st 20sq cm No Yes right LE Anterior -Time 14:23 14:57 15:20 -Correct Patient Yes Yes Yes -Correct Side, Site, Position Yes -Correct Procedure Yes -Procedure Performed Yes No No -Type of Procedure Debridement -Clinical Debridement Subcutaneous -Tissue Removed Subcutaneous -Post Debridement (cm) - Length 5.0 4.0 0.1 -Post Debridement (cm) - Width 2.6 1.5 0.1 -Post Debridement (cm) - Depth 0.1 0.1 0.1 -Total Square (Post) (cm) 13.00 6.00 0.01 -Area of Debridement (cm) - Length 5.0 4.0 0.1 -Area of Debridement (cm) - Width 2.6 1.5 0.1 -Total Square (Area) (cm) 13.00 6.00 0.01 -Tunneling No No -Undermining/Tunneling No No -Circular Undermining No No -Wound/Ulcer Outcome Not Healed Not Healed Not Healed -Ulcer Cleansing Rinsed/ Irrigated with Saline -Bioengineered Tissue No -Bleeding Controlled with Pressure -Treatment Response Procedure Tolerated Well -Debridement - Subq, 1st 20sq cm Yes -Debridement, SubQ, ea addt'l 20sq cm 1 or part thereof Pain Scale: 0-10 Numeric Is Patient Pain Free? Yes Yes No RLE -Description Aching -Intensity 5 -Duration (hours) Chronic -Pain Aggravating Factors Debridement -Alleviating Factors/Interventions Will continue to monitor, Emotional Support 02/19/24 11:30 Wound Center Nurse 2 right LE Posterior -Time 11:30 -Correct Patient Yes -Correct Side, Site, Position Yes -Correct Procedure Yes -Procedure Performed Yes -Type of Procedure Debridement -Clinical Debridement Subcutaneous -Tissue Removed Subcutaneous -Post Debridement (cm) - Length 1.1 -Post Debridement (cm) - Width 2.5 -Post Debridement (cm) - Depth 0.1 -Total Square (Post) (cm) 2.75 -Area of Debridement (cm) - Length 1.1 -Area of Debridement (cm) - Width 2.5 -Total Square (Area) (cm) 2.75 -Tunneling No -Undermining/Tunneling No -Circular Undermining No -Wound/Ulcer Outcome Not Healed -Ulcer Cleansing Rinsed/ Irrigated with Saline -Bioengineered Tissue No -Bleeding Controlled with Pressure -Treatment Response Procedure Tolerated Well -Debridement - Subq, 1st 20sq cm Yes right LE Anterior -Time 11:30 -Correct Patient Yes -Correct Side, Site, Position -Correct Procedure -Procedure Performed No -Type of Procedure -Clinical Debridement -Tissue Removed -Post Debridement (cm) - Length -Post Debridement (cm) - Width -Post Debridement (cm) - Depth -Total Square (Post) (cm) -Area of Debridement (cm) - Length -Area of Debridement (cm) - Width -Total Square (Area) (cm) -Tunneling -Undermining/Tunneling -Circular Undermining -Wound/Ulcer Outcome Healed- Epithelialized -Ulcer Cleansing -Bioengineered Tissue -Bleeding Controlled with -Treatment Response -Debridement - Subq, 1st 20sq cm -Debridement, SubQ, ea addt'l 20sq cm or part thereof Pain Scale: 0-10 Numeric Is Patient Pain Free? Yes RLE -Description -Intensity -Duration (hours) -Pain Aggravating Factors -Alleviating Factors/Interventions WC - Nurse 3 - General Ulcer D/C NN Start: 01/29/24 14:11 Freq: Status: Active Protocol: Activity Type Activity Date Activity User E-sign Co-sign Detail Recorded Client Recorded Date Recorded By Document 01/29/24 14:52 KW [id number] 01/29/24 14:53 KW Document 02/01/24 09:52 DS [id number] 02/01/24 10:13 DS Document 02/12/24 16:15 RB [id number] 02/12/24 16:16 RB Document 02/15/24 10:01 RB [id number] 02/15/24 10:07 RB Document 02/19/24 12:11 RB [id number] 02/19/24 12:14 RB 01/29/24 02/01/24 02/12/24 14:52 09:52 16:15 Wound Care Center Nurse 3 right LE Posterior -Primary Dressing Applied Optilok 6.5x10 -Optilok 6.5x10 1 Left -Multi-Layered Wrap Application right #2 -Multi-Layered Wrap Application Multi-Layer Multi-Layer Comp - Right ($ Comp - Right ($ ) ) -Other 2 multi layer used Right -Multi-Layered Wrap Application Unna Boot - Unna Boot - Unna Boot - Right ($) Right ($) Right ($) Treatment Response Procedure Tolerated Well Vital Signs Temperature (97.8 F-99.1 F) Temperature Source Pulse Rate (60-100) Pulse Location Respiratory Rate (12-18) Respiratory rate source Blood Pressure (90/60-120/80) Blood Pressure Mean Source Position Blood Pressure Location Pain Scale: 0-10 Numeric Is Patient Pain Free? Yes Yes Yes WC - Visit Discharge Discharge Condition Stable Stable Stable Ambulatory Status Ambulatory,Cane Ambulatory Ambulatory,Cane Transportation Private Auto Private Auto Private Auto Medication Reconcilliation completed & No provided to patient/care provider Clinical Summary of Care Provided Yes Notes: 02/15/24 02/19/24 10:01 12:11 Wound Care Center Nurse 3 right LE Posterior -Primary Dressing Applied Optilok 6.5x10 Optilok 6.5x10 -Optilok 6.5x10 1 1 Left -Multi-Layered Wrap Application Multi-Layer Comp - Bilat ($ ) right #2 -Multi-Layered Wrap Application -Other Right -Multi-Layered Wrap Application Multi-Layer Unna Boot - Comp - Right ($ Right ($) ) Treatment Response Procedure Procedure Tolerated Well Tolerated Well Vital Signs Temperature (97.8 F-99.1 F) 98.9 F Temperature Source Temporal Pulse Rate (60-100) 95 Pulse Location Monitor Respiratory Rate (12-18) 18 Respiratory rate source Observation Blood Pressure (90/60-120/80) 145/68 H Blood Pressure Mean 93 Source Monitor Position Semi-Fowlers Blood Pressure Location Left Arm Pain Scale: 0-10 Numeric Is Patient Pain Free? Yes Yes WC - Visit Discharge Discharge Condition Stable Stable Ambulatory Status Ambulatory,Cane Ambulatory Transportation Private Auto Private Auto Medication Reconcilliation completed & No No provided to patient/care provider Clinical Summary of Care Provided Yes Yes Notes: circaid RIGHT UNNA AND measurements 3M OVER . AND Left calf 60, LEFT 3M ankle 36.2 , length 43.5 Right calf 57.3 , ankle 31.5 , length 42 Charges/Coding Wound Center CF Procedures [id number]: 13940 RMVL DEVITAL TIS 20 CM/< Multi Select Codes Wound Center CF Procedures [id number]: [id number] RMVL DEVITAL TIS 20 CM/< Assessment/Plan Assessment/Plan (1) Venous ulcer of right leg: CODE(S): I83.019 - Varicose veins of right lower extremity with ulcer of unspecified site; L97.919 - Non-pressure chronic ulcer of unspecified part of right lower leg with unspecified severity (2) Non-pressure chronic ulcer right lower leg, limited to breakdown skin: CODE(S): L97.911 - Non-pressure chronic ulcer of unspecified part of right lower leg limited to breakdown of skin (3) Cellulitis of right leg: CODE(S): L03.115 - Cellulitis of right lower limb (4) Venous stasis dermatitis of right lower extremity: CODE(S): I87.2 - Venous insufficiency (chronic) (peripheral) (5) Bilateral lower extremity edema: CODE(S): R60.0 - Localized edema (6) Lymphedema of both lower extremities: CODE(S): I89.0 - Lymphedema, not elsewhere classified (7) 1+ pitting edema: CODE(S): R60.9 - Edema, unspecified (8) Morbid obesity with BMI of 70 and over, adult: CODE(S): E66.01 - Morbid (severe) obesity due to excess calories; Z68.45 - Body mass index [BMI] 70 or greater, adult PLAN: Plan This is a 33-year-old morbidly obese female who presented with a large venous ulceration in the gaiter area of her distal right lower extremity. It was associated with venous stasis dermatitis. The patient has finished her course of oral Keflex, and the signs of cellulitis have abated. The patient's BMI is 78.2. She denies significant other medical problems, and she is not a smoker. A lengthy discussion has been undertaken with the patient regarding the measures appropriate to the management of her venous disease, which is suspected to be the etiology of her presenting symptoms and manifestations. Weight loss has been recommended, though not likely to be of major impact in the short-term. Nonetheless, we have arranged consultation with a dietitian, who has met with the patient to provide nutritional recommendations and guidance. The patient has been advised to elevate her lower extremities as much as possible, which is to be implemented to heart level, or higher. She has been encouraged to sleep on a flat mattress at night. She did not have a bed at her apartment, and measures were undertaken to assist the patient in procuring a bed. A hospital bed has been delivered to her home, which now allows her to recline and elevate her legs as advised. The patient has been encouraged to elevate her lower extremities during both nighttime and daytime hours. Prolonged idle standing and sitting have been discouraged. Activity has been encouraged. The benefits of implementing the calf muscle pumps with activity have been explained. We are to continue compression to the right lower extremity by means of a multilayer Unna boot compression wrap. The patient is to return in 3 days for a replacement of the Unna boot compression wrap, and a regimen of twice weekly Unna boot applications. A 3M 2 layer compression wrap is to be applied to the left lower extremity, as compression is warranted despite a lack of skin changes. The patient has been measured for CircAid Velcro compression garments, as a means of adequate, long-term compression will be required by the patient. However, the patient's insurance has denied the benefit of CircAid Velcro compression garments. Therefore, standard graduated compression stockings of 20 to 30 mmHg are the alternative, and have been prescribed for the patient. Custom stockings may be required, due to the large size of the patient's distal lower extremities. The patient is to return in 1 week for reevaluation. Total time: 25 minutes
== END 2024-02-26 23:59 | disposition home or self-care (01) ==
LOC: WC 09:30
PROVIDERS: PCP Family Medicine; Referring Provider Family Medicine; Visit Provider Surgery
DX: I83.019 Varicose veins of right lower extremity with ulcer of unspecified site (principal); L97.912 Non-pressure chronic ulcer of unspecified part of right lower leg with fat layer exposed; E66.01 Morbid (severe) obesity due to excess calories; Z68.45 Body mass index [BMI] 70 or greater, adult; L03.115 Cellulitis of right lower limb; I87.2 Venous insufficiency (chronic) (peripheral); R60.0 Localized edema; I89.0 Lymphedema, not elsewhere classified
CPT/HCPCS: 11042; 11045; 29580; 29581; 97597; 97802; 99213; G0463

== ENCOUNTER 2024-03-28 10:15 | Outpatient (RCR) | payer MEDICAID, SELFPAY ==
[2024-02-27 00:49] VITALS: BP 117/73; PULSE 96; RESP 18; TEMP 36.8; BMI 78.2
[2024-02-29 09:42] VITALS: BP 143/82; PULSE 89; RESP 18; TEMP 36.1; BMI 78.2
[2024-03-04 13:45] VITALS: BP 153/54; PULSE 86; RESP 18; TEMP 36.1; BMI 78.2
--- NOTE | 2024-03-06 12:26 | WC ---
PHOTO 03/04/24 RIGHT POST LE
[2024-03-07 10:55] VITALS: TEMP 36.4; BMI 78.2
--- NOTE | 2024-03-09 16:05 | PCM.WC.HP ---
History of Present Illness Date of Service: 03/04/24 Chief Complaint: Venous ulceration, cellulitis, chronic venous insufficiency, venous stasis dermatitis, pitting edema, lymphedema - right lower extremity History of Wound: This is a morbidly obese 33-year-old female who presented with venous ulcerations and cellulitis involving her right lower extremity. The patient also suffers from chronic venous insufficiency, and venous stasis dermatitis in the right lower extremity. She also has a history of pitting edema and lymphedema in her lower extremities bilaterally. According to the patient, she had the ulceration and dermatitic changes in her right lower extremity for approximately 3 months. Only recently did she seek medical attention. She was seen and evaluated in the [facility] Emergency Department on January 10, 2024, where she was placed on Keflex 500 mg p.o. twice daily x 10 days in treatment for right lower extremity cellulitis. She has completed the course of antibiotics. The patient was evaluated at the [facility] on January 17, 2024, where she was referred for definitive management at the [facility]. At her visit to the [facility], betadine was applied to her right lower extremity ulceration, in addition to an Dwight wrap. The patient is morbidly obese, with a BMI of 78.2. 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 She lives alone, with very few resources. She did not have a bed, and was sleeping in a recliner. She stated that her recliner was broken, and that her legs cannot be elevated. The patient lives alone, and does not have family or friends to assist her with her daily needs. She denied a history of significant medical problems such as myocardial infarction, congestive heart failure, diabetes mellitus, pulmonary disease, renal disease, thyroid disease, and cerebrovascular disease. She denied prior surgical procedures. She does not use tobacco products. [facility] Medical History Non-pressure chronic ulcer right lower leg, limited to breakdown skin Morbid obesity with BMI of 70 and over, adult Venous stasis dermatitis of right lower extremity Venous ulcer of right leg Cellulitis of right leg 1+ pitting edema Lymphedema of both lower extremities Bilateral lower extremity edema Home Medications ?Medication ?Instructions ?Recorded ?Last Taken ?Type naproxen 500 mg tablet 500 mg PO BID PRN #20 tabs 12/08/18 Unknown Rx cephalexin 500 mg capsule 500 mg PO Q6 #40 CAPSULES 01/10/24 Unknown Rx Allergy/AdvReac Type Severity Reaction Status Date / Time No Known Allergies Allergy Verified 02/16/21 13:44 Surgical History no surgical history no surgical history Social History Smoking Status: Never smoker Vital Signs Vital Signs Vital Signs: Weight Weight: 500 lb Body Mass Index (BMI) 78.2 Physical Exam Const alert, oriented x3, no apparent distress, no limitations and well nourished Constitutional Narrative: The patient is morbidly obese, with a BMI of 78.2 General Appearance: cooperative, comfortable, well kempt and well developed Orientation / Consciousness: awake, oriented to person, oriented to place and oriented to time Exam Limitations: no limitations HEENT normocephalic, head/scalp atraumatic and hearing grossly normal bilaterally Head and Scalp: normal to inspection, normocephalic and atraumatic Face and Sinus: normal facial exam Nose: external nose normal External Ear: external ears normal Eyes EOMs intact bilaterally General Eye: normal appearance of both eyes Neck full ROM Resp normal respiratory effort, normal air movement, no retractions and no use of accessory muscles Effort and Inspection: able to speak in complete sentences GI Inspection: pannus present Extremity no calf tenderness General Extremity: Negative for clubbing or cyanosis Skin Wound Narrative: Swelling, edema, and lymphedema are noted in the lower extremities bilaterally. The amount of swelling and edema appear to be diminishing bilaterally. Cellulitis in the right lower extremity has resolved. The venous stasis dermatitis in the right lower extremity has essentially resolved as well. A very small, superficial ulceration persists on the patient's right posterior calf, demonstrating significant improvement, with near-complete healing. All other ulcerations are healed. Significant improvement is noted. The dimensions of the solitary ulceration are documented elsewhere. There is no sign of infection or cellulitis. Wound margins are well beveled. Neuro oriented x3, CN's II-XII intact bilaterally, moves all extremities, no focal motor deficits and no sensory deficits noted Sensorium / Orientation: awake, alert, oriented to person, oriented to place and oriented to time Cranial Nerves: CN normal except as noted Speech: speech normal Psych Appearance: grossly normal and appropriate Attitude: calm Activity / Motor Behavior: appropriate eye contact Speech: normal speech Mood & Affect: euthymic mood Thought Process: normal thought process Thought Content: normal thought content Attention / Concentration: attention grossly intact Debridement Note Debridement Note Wound debrided: Right posterior calf ulceration Laterality: Right Type of Debridement: Selective debridement Anesthesia Used: 5% Lidocaine Gel Depth: Down to and including healthy tissue Percentage of wound debrided: 100 Instrument Used: 3mm curette Tissue Removed: Bioburden and devitalized tissue Severity: Limited To Skin Breakdown Amount of bleeding with debridement: Mild Bleeding Controlled with: Compression and gauze Patient tolerated procedure: Patient tolerated procedure well Post-Debridement Measurements and Additional Note: Post-Debridement Measurements/Treatment - Nurse 1 - General Ulcer Assessment Start: 02/29/24 09:42 Freq: Status: Active Protocol: LACEY Activity Type Activity Date Activity User E-sign Co-sign Detail Recorded Client Recorded Date Recorded By Document 02/29/24 09:42 KW [id number] 02/29/24 10:10 KW Document 03/04/24 13:45 KW [id number] 03/04/24 13:53 KW Document 03/07/24 10:55 KW [id number] 03/07/24 10:57 KW 02/29/24 03/04/24 03/07/24 09:42 13:45 10:55 - Today's Visit Information Type of service Nurse-only Follow-up Visit Nurse-only Visit (Physician/HOT METAL CHARGER Visit ) Arrival Mode Ambulatory,Cane Ambulatory,Cane Ambulatory,Cane Patient Identification Verified (Name & Yes Yes Yes ) Height and Weight Body Mass Index (BMI) 78.2 78.2 78.2 BMI Classification Obese Obese Obese Vital Signs Temperature (97.8 F-99.1 F) 96.9 F L 97.0 F L 97.6 F L Temperature Source Temporal Temporal Temporal Pulse Rate (60-100) 89 86 Pulse Location Monitor Monitor Respiratory Rate (12-18) 18 18 Respiratory rate source Observation Observation Oxygen Delivery Method Room Air Room Air Blood Pressure (90/60-120/80) 143/82 H 153/54 H Blood Pressure Mean 102 87 Source Monitor Monitor Position Sitting Semi-Fowlers Blood Pressure Location Left Forearm Left Forearm History Since Last Visit- (Skip if this is Patient's initial visit) Have you changed medications since your No No No last visit? Any new allergies or adverse reactions No No No Had a fall/change in ADL's that may No No No increase risk of falls Signs or symptoms of abuse and/or No No No neglect since last visit Have you been in the hospital since your No No Yes last visit? Has dressing in place as prescribed Yes Yes Yes Has compression in place as prescribed Yes Yes Yes Has offloadiing in place as prescribed N/A N/A N/A Experienced any changes in pain level or No No No management Left Footwear Regular Shoe Regular Shoe Regular Shoe Right Footwear Regular Shoe Regular Shoe Regular Shoe Pain Scale: 0-10 Numeric Is Patient Pain Free? Yes Yes Yes AILYN - Nurse 1 - General Ulcer Measurement Start: 02/29/24 09:42 Freq: Status: Active Protocol: Activity Type Activity Date Activity User E-sign Co-sign Detail Recorded Client Recorded Date Recorded By Document 03/04/24 13:45 KW [id number] 03/04/24 13:53 KW 03/04/24 13:45 Wound Center Nurse 1 right LE Posterior -Combined with other wound No -Current Size (cm) - Length 0.1 -Current Size (cm) - Width 0.1 -Current Size (cm) - Depth 0.1 -Total Square Cm 0.01 -Photo Taken Yes -Tunneling No -Undermining/Tunneling No -Circular Undermining No -Exudate Amt None Present -Wound Margin Distinct, Outline Attached -Granulation Amt Large (67-100%) -Granulation Quality [place] -Slough/Fibrin Yes -Necrosis Amt Small (1-33%) -Necrotic Tissue Type Adherent Slough -Structure Exposed N/A -Texture (Callie-wound Skin Appearance) Assessed -Moisture (Callie-wound Skin Appearance) Assessed -Color (Callie-wound Skin Appearance) Assessed -Temperature (Callie-wound Skin No Abnormality Appearance) (Pt Warm) -Tenderness on Palpation (Callie-wound No Skin Appearance) -Ulcer Cleansing Soap and Water -Foul Odor after Cleansing No -Anesthetic Used 5% Lidocaine Gel Lower Limb Edema Present Yes Right Calf (cm) 53.5 Right Ankle (cm) 30 Left Calf (cm) 56 Left Ankle (cm) 31 WC - Nurse 2 - General Ulcer CM Notes Start: 02/29/24 09:42 Freq: Status: Active Protocol: Activity Type Activity Date Activity User E-sign Co-sign Detail Recorded Client Recorded Date Recorded By Document 03/04/24 14:55 DS [id number] 03/04/24 14:56 DS 03/04/24 14:55 Wound Center Nurse 2 right LE Posterior -Time 14:55 -Correct Patient Yes -Correct Side, Site, Position Yes -Correct Procedure Yes -Procedure Performed Yes -Type of Procedure Debridement -Clinical Debridement Epidermis / Dermis -Tissue Removed Epidermis -Post Debridement (cm) - Length 0.1 -Post Debridement (cm) - Width 0.1 -Post Debridement (cm) - Depth 0.1 -Total Square (Post) (cm) 0.01 -Area of Debridement (cm) - Length 0.1 -Area of Debridement (cm) - Width 0.1 -Total Square (Area) (cm) 0.01 -Tunneling No -Undermining/Tunneling No -Circular Undermining No -Wound/Ulcer Outcome Not Healed -Ulcer Cleansing Rinsed/ Irrigated with Saline -Foul Odor after Cleansing No -Bioengineered Tissue No -Bleeding Controlled with Pressure -Treatment Response Procedure Tolerated Well -Debridement - Open, 1st 20sq cm Yes Pain Scale: 0-10 Numeric Is Patient Pain Free? Yes WC - Nurse 3 - General Ulcer D/C NN Start: 02/29/24 09:42 Freq: Status: Active Protocol: Activity Type Activity Date Activity User E-sign Co-sign Detail Recorded Client Recorded Date Recorded By Document 02/29/24 09:42 KW [id number] 02/29/24 10:10 KW Document 03/04/24 15:07 ML [id number] 03/04/24 15:17 ML Document 03/07/24 10:55 KW [id number] 03/07/24 10:57 KW 02/29/24 03/04/24 03/07/24 09:42 15:07 10:55 Vital Signs Temperature (97.8 F-99.1 F) 96.9 F L 97.6 F L Temperature Source Temporal Temporal Pulse Rate (60-100) 89 Pulse Location Monitor Respiratory Rate (12-18) 18 Respiratory rate source Observation Oxygen Delivery Method Room Air Blood Pressure (90/60-120/80) 143/82 H Blood Pressure Mean 102 Source Monitor Position Sitting Blood Pressure Location Left Forearm Pain Scale: 0-10 Numeric Is Patient Pain Free? Yes Yes Yes Wound Care Center Nurse 3 right LE Posterior -Ulcer Cleansing Soap and Water Soap and Water -Primary Dressing Covered/Secured with Dry Gauze bilat -Multi-Layered Wrap Application Multi-Layer Multi-Layer Multi-Layer Comp - Bilat ($ Comp - Bilat ($ Comp - Bilat ($ ) ) ) right #2 -Multi-Layered Wrap Application Unna Boot - Right ($) Right -Multi-Layered Wrap Application Unna Boot - Unna Boot - Right ($) Right ($) WC - Visit Discharge Discharge Condition Stable Stable Ambulatory Status Ambulatory,Cane Ambulatory,Cane Transportation Private Auto Private Auto Medication Reconcilliation completed & No No provided to patient/care provider Clinical Summary of Care Provided Yes Yes Charges/Coding Wound Center CF Procedures [id number]: [id number] RMVL DEVITAL TIS 20 CM/< Multi Select Codes Wound Center CF Procedures [id number]: [id number] RMVL DEVITAL TIS 20 CM/< Assessment/Plan Assessment/Plan (1) Venous ulcer of right leg: CODE(S): I83.019 - Varicose veins of right lower extremity with ulcer of unspecified site; L97.919 - Non-pressure chronic ulcer of unspecified part of right lower leg with unspecified severity (2) Non-pressure chronic ulcer right lower leg, limited to breakdown skin: CODE(S): L97.911 - Non-pressure chronic ulcer of unspecified part of right lower leg limited to breakdown of skin (3) Cellulitis of right leg: CODE(S): L03.115 - Cellulitis of right lower limb (4) Venous stasis dermatitis of right lower extremity: CODE(S): I87.2 - Venous insufficiency (chronic) (peripheral) (5) Bilateral lower extremity edema: CODE(S): R60.0 - Localized edema (6) Lymphedema of both lower extremities: CODE(S): I89.0 - Lymphedema, not elsewhere classified (7) 1+ pitting edema: CODE(S): R60.9 - Edema, unspecified (8) Morbid obesity with BMI of 70 and over, adult: CODE(S): E66.01 - Morbid (severe) obesity due to excess calories; Z68.45 - Body mass index [BMI] 70 or greater, adult PLAN: Plan This is a 33-year-old morbidly obese female who presented with a large, clustered venous ulceration in the gaiter area of her distal right lower extremity. It was associated with venous stasis dermatitis. The patient has finished her course of oral Keflex, and the signs of cellulitis have abated. The patient's BMI is 78.2. She denies significant other medical problems, and she is not a smoker. A lengthy discussion has been undertaken with the patient regarding the measures appropriate to the management of her venous disease, which is suspected to be the etiology of her presenting symptoms and manifestations. Weight loss has been recommended, though not likely to be of major impact in the short-term. Nonetheless, we have arranged consultation with a dietitian, who has met with the patient to provide nutritional recommendations and guidance. The patient has been advised to elevate her lower extremities as much as possible, which is to be implemented to heart level, or higher. She has been encouraged to sleep on a flat mattress at night. She did not have a bed at her apartment, and measures were undertaken to assist the patient in procuring a bed. A hospital bed has been delivered to her home, which now allows her to recline and elevate her legs as advised. The patient has been encouraged to elevate her lower extremities during both nighttime and daytime hours. Prolonged idle standing and sitting have been discouraged. Activity has been encouraged. The benefits of implementing the calf muscle pumps with activity have been explained. We are to continue compression to the right lower extremity by means of a multilayer Unna boot compression wrap. The patient is to return in 3 days for a replacement of the Unna boot compression wrap, and a regimen of twice weekly Unna boot applications. A 3M 2 layer compression wrap is to be applied to the left lower extremity, as compression is warranted despite a lack of skin changes. The patient has been measured for CircAid Velcro compression garments, as a means of adequate, long-term compression will be required by the patient. However, the patient's insurance has denied the benefit of CircAid Velcro compression garments. Therefore, standard graduated compression stockings of 20 to 30 mmHg are the alternative, and have been prescribed for the patient. Custom stockings may be required, due to the large size of the patient's distal lower extremities. The patient is to return in 1 week for reevaluation. Total time: 24 minutes
[2024-03-11 14:33] VITALS: BP 148/57; PULSE 89; RESP 18; TEMP 35.5; BMI 78.2
--- NOTE | 2024-03-12 10:56 | HP.PCM_ITS ---
History of Present Illness Date of Service: 03/11/24 Chief Complaint: Venous ulceration, cellulitis, chronic venous insufficiency, venous stasis dermatitis, pitting edema, lymphedema - right lower extremity History of Wound: This is a morbidly obese 33-year-old female who presented with venous ulcerations and cellulitis involving her right lower extremity. The patient also suffers from chronic venous insufficiency, and venous stasis dermatitis in the right lower extremity. She also has a history of pitting edema and lymphedema in her lower extremities bilaterally. According to the patient, she had the ulceration and dermatitic changes in her right lower extremity for approximately 3 months. Only recently did she seek medical attention. She was seen and evaluated in the [facility] Emergency Department on January 10, 2024, where she was placed on Keflex 500 mg p.o. twice daily x 10 days in treatment for right lower extremity cellulitis. She has completed the course of antibiotics. The patient was evaluated at the [facility] on January 17, 2024, where she was referred for definitive management at the [facility]. At her visit to the [facility], betadine was applied to her right lower extremity ulceration, in addition to an Dwight wrap. The patient is morbidly obese, with a BMI of 78.2. 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 She lives alone, with very few resources. She did not have a bed, and was sleeping in a recliner. She stated that her recliner was broken, and that her legs cannot be elevated. The patient lives alone, and does not have family or friends to assist her with her daily needs. She denied a history of significant medical problems such as myocardial infarction, congestive heart failure, diabetes mellitus, pulmonary disease, renal disease, thyroid disease, and cerebrovascular disease. She denied prior surgical procedures. She does not use tobacco products. [facility] Medical History Non-pressure chronic ulcer right lower leg, limited to breakdown skin Morbid obesity with BMI of 70 and over, adult Venous stasis dermatitis of right lower extremity Venous ulcer of right leg Cellulitis of right leg 1+ pitting edema Lymphedema of both lower extremities Bilateral lower extremity edema Home Medications ?Medication ?Instructions ?Recorded ?Last Taken ?Type naproxen 500 mg tablet 500 mg PO BID PRN #20 tabs 12/08/18 Unknown Rx cephalexin 500 mg capsule 500 mg PO Q6 #40 CAPSULES 01/10/24 Unknown Rx Allergy/AdvReac Type Severity Reaction Status Date / Time No Known Allergies Allergy Verified 02/16/21 13:44 Surgical History no surgical history Social History Smoking Status: Never smoker Vital Signs Vital Signs Vital Signs: 03/11/24 14:33 Temperature 96 F L Temperature Source Temporal Pulse Rate 89 Respiratory Rate 18 Blood Pressure 148/57 H Blood Pressure Mean 87 Blood Pressure Source Monitor Blood Pressure Position Semi-Fowlers Blood Pressure Location Left Arm Weight Weight: 500 lb Body Mass Index (BMI) 78.2 Physical Exam Const alert, oriented x3, no apparent distress, no limitations and well nourished Constitutional Narrative: The patient is morbidly obese, with a BMI of 78.2 General Appearance: cooperative, comfortable, well kempt and well developed Orientation / Consciousness: awake, oriented to person, oriented to place and oriented to time Exam Limitations: no limitations HEENT normocephalic, head/scalp atraumatic and hearing grossly normal bilaterally Head and Scalp: normal to inspection, normocephalic and atraumatic Face and Sinus: normal facial exam Nose: external nose normal External Ear: external ears normal Eyes EOMs intact bilaterally General Eye: normal appearance of both eyes Neck full ROM Resp normal respiratory effort, normal air movement, no retractions and no use of accessory muscles Effort and Inspection: able to speak in complete sentences GI Inspection: pannus present Extremity no calf tenderness General Extremity: Negative for clubbing or cyanosis Skin Wound Narrative: Swelling, edema, and lymphedema are noted in the lower extremities bilaterally. The amount of swelling and edema appear to be diminishing bilaterally. Cellulitis in the right lower extremity has resolved. The venous stasis dermatitis in the right lower extremity has resolved as well. All ulcerations in the right lower extremity are now completely healed and epithelialized. There is no sign of infection or cellulitis. Neuro oriented x3, CN's II-XII intact bilaterally, moves all extremities, no focal motor deficits and no sensory deficits noted Sensorium / Orientation: awake, alert, oriented to person, oriented to place and oriented to time Cranial Nerves: CN normal except as noted Speech: speech normal Psych Appearance: grossly normal and appropriate Attitude: calm Activity / Motor Behavior: appropriate eye contact Speech: normal speech Mood & Affect: euthymic mood Thought Process: normal thought process Thought Content: normal thought content Attention / Concentration: attention grossly intact Debridement Note Debridement Note No debridement was completed: No debridement was completed today (All ulcerations are now healed.) Post-Debridement Measurements and Additional Note: Post-Debridement Measurements/Treatment - Nurse 1 - General Ulcer Assessment Start: 02/29/24 09:42 Freq: Status: Active Protocol: LACEY Activity Type Activity Date Activity User E-sign Co-sign Detail Recorded Client Recorded Date Recorded By Document 02/29/24 09:42 KW [id number] 02/29/24 10:10 KW Document 03/04/24 13:45 KW [id number] 03/04/24 13:53 KW Document 03/07/24 10:55 KW [id number] 03/07/24 10:57 KW Document 03/11/24 14:33 RB [id number] 03/11/24 14:34 RB 02/29/24 03/04/24 03/07/24 09:42 13:45 10:55 - Today's Visit Information Type of service Nurse-only Follow-up Visit Nurse-only Visit (Physician/STREET CLEANER Visit ) Arrival Mode Ambulatory,Cane Ambulatory,Cane Ambulatory,Cane Transfer Assistance Patient Identification Verified (Name & Yes Yes Yes ) Patient Requires Transmission-Based Precautions Height and Weight Body Mass Index (BMI) 78.2 78.2 78.2 BMI Classification Obese Obese Obese Vital Signs Temperature (97.8 F-99.1 F) 96.9 F L 97.0 F L 97.6 F L Temperature Source Temporal Temporal Temporal Pulse Rate (60-100) 89 86 Pulse Location Monitor Monitor Respiratory Rate (12-18) 18 18 Respiratory rate source Observation Observation Oxygen Delivery Method Room Air Room Air Blood Pressure (90/60-120/80) 143/82 H 153/54 H Blood Pressure Mean 102 87 Source Monitor Monitor Position Sitting Semi-Fowlers Blood Pressure Location Left Forearm Left Forearm History Since Last Visit- (Skip if this is Patient's initial visit) Have you changed medications since your No No No last visit? Any new allergies or adverse reactions No No No Had a fall/change in ADL's that may No No No increase risk of falls Signs or symptoms of abuse and/or No No No neglect since last visit Have you been in the hospital since your No No Yes last visit? Has dressing in place as prescribed Yes Yes Yes Has compression in place as prescribed Yes Yes Yes Has offloadiing in place as prescribed N/A N/A N/A Experienced any changes in pain level or No No No management Left Footwear Regular Shoe Regular Shoe Regular Shoe Right Footwear Regular Shoe Regular Shoe Regular Shoe Pain Scale: 0-10 Numeric Is Patient Pain Free? Yes Yes Yes 03/11/24 14:33 - Today's Visit Information Type of service Follow-up Visit (Physician/STREET CLEANER ) Arrival Mode Ambulatory Transfer Assistance None Patient Identification Verified (Name & Yes ) Patient Requires Transmission-Based No Precautions Height and Weight Body Mass Index (BMI) 78.2 BMI Classification Obese Vital Signs Temperature (97.8 F-99.1 F) 96 F L Temperature Source Temporal Pulse Rate (60-100) 89 Pulse Location Monitor Respiratory Rate (12-18) 18 Respiratory rate source Observation Oxygen Delivery Method Blood Pressure (90/60-120/80) 148/57 H Blood Pressure Mean 87 Source Monitor Position Semi-Fowlers Blood Pressure Location Left Arm History Since Last Visit- (Skip if this is Patient's initial visit) Have you changed medications since your No last visit? Any new allergies or adverse reactions No Had a fall/change in ADL's that may No increase risk of falls Signs or symptoms of abuse and/or No neglect since last visit Have you been in the hospital since your No last visit? Has dressing in place as prescribed Yes Has compression in place as prescribed Yes Has offloadiing in place as prescribed N/A Experienced any changes in pain level or No management Left Footwear Regular Shoe Right Footwear Regular Shoe Pain Scale: 0-10 Numeric Is Patient Pain Free? Yes - Nurse 1 - General Ulcer Measurement Start: 02/29/24 09:42 Freq: Status: Active Protocol: Activity Type Activity Date Activity User E-sign Co-sign Detail Recorded Client Recorded Date Recorded By Document 03/04/24 13:45 KW [id number] 03/04/24 13:53 KW Document 03/11/24 14:33 RB [id number] 03/11/24 14:34 RB 03/04/24 03/11/24 13:45 14:33 Wound Center Nurse 1 right LE Posterior -Combined with other wound No No -Current Size (cm) - Length 0.1 0 -Current Size (cm) - Width 0.1 0 -Current Size (cm) - Depth 0.1 0 -Total Square Cm 0.01 0 -Photo Taken Yes Yes -Epithelialization Large 67-100% -Tunneling No -Undermining/Tunneling No -Circular Undermining No -Exudate Amt None Present -Wound Margin Distinct, Outline Attached -Granulation Amt Large (67-100%) -Granulation Quality [place] -Slough/Fibrin Yes -Necrosis Amt Small (1-33%) -Necrotic Tissue Type Adherent Slough -Structure Exposed N/A -Texture (Callie-wound Skin Appearance) Assessed -Moisture (Callie-wound Skin Appearance) Assessed -Color (Callie-wound Skin Appearance) Assessed -Temperature (Callie-wound Skin No Abnormality Appearance) (Pt Warm) -Tenderness on Palpation (Callie-wound No Skin Appearance) -Ulcer Cleansing Soap and Water -Foul Odor after Cleansing No -Anesthetic Used 5% Lidocaine Gel Lower Limb Edema Present Yes Yes Right Calf (cm) 53.5 54 Right Ankle (cm) 30 30 Left Calf (cm) 56 57 Left Ankle (cm) 31 31.5 WC - Nurse 2 - General Ulcer CM Notes Start: 02/29/24 09:42 Freq: Status: Active Protocol: Activity Type Activity Date Activity User E-sign Co-sign Detail Recorded Client Recorded Date Recorded By Document 03/04/24 14:55 DS [id number] 03/04/24 14:56 DS Document 03/11/24 14:50 DS [id number] 03/11/24 14:51 DS 03/04/24 03/11/24 14:55 14:50 Wound Center Nurse 2 right LE Posterior -Time 14:55 14:50 -Correct Patient Yes Yes -Correct Side, Site, Position Yes -Correct Procedure Yes -Procedure Performed Yes No -Type of Procedure Debridement -Clinical Debridement Epidermis / Dermis -Tissue Removed Epidermis -Post Debridement (cm) - Length 0.1 -Post Debridement (cm) - Width 0.1 -Post Debridement (cm) - Depth 0.1 -Total Square (Post) (cm) 0.01 -Area of Debridement (cm) - Length 0.1 -Area of Debridement (cm) - Width 0.1 -Total Square (Area) (cm) 0.01 -Tunneling No -Undermining/Tunneling No -Circular Undermining No -Wound/Ulcer Outcome Not Healed Healed- Epithelialized -Ulcer Cleansing Rinsed/ Irrigated with Saline -Foul Odor after Cleansing No -Bioengineered Tissue No -Bleeding Controlled with Pressure -Treatment Response Procedure Tolerated Well -Debridement - Open, 1st 20sq cm Yes Pain Scale: 0-10 Numeric Is Patient Pain Free? Yes Yes - Nurse 3 - General Ulcer D/C NN Start: 02/29/24 09:42 Freq: Status: Active Protocol: Activity Type Activity Date Activity User E-sign Co-sign Detail Recorded Client Recorded Date Recorded By Document 02/29/24 09:42 KW [id number] 02/29/24 10:10 KW Document 03/04/24 15:07 ML [id number] 03/04/24 15:17 ML Document 03/07/24 10:55 KW [id number] 03/07/24 10:57 KW Document 03/11/24 15:25 RB [id number] 03/11/24 15:28 RB 02/29/24 03/04/24 03/07/24 09:42 15:07 10:55 Vital Signs Temperature (97.8 F-99.1 F) 96.9 F L 97.6 F L Temperature Source Temporal Temporal Pulse Rate (60-100) 89 Pulse Location Monitor Respiratory Rate (12-18) 18 Respiratory rate source Observation Oxygen Delivery Method Room Air Blood Pressure (90/60-120/80) 143/82 H Blood Pressure Mean 102 Source Monitor Position Sitting Blood Pressure Location Left Forearm Pain Scale: 0-10 Numeric Is Patient Pain Free? Yes Yes Yes Teaching: Wound Center Control Swelling with Leg Elevation -Person Taught -Teaching Method -Response to teaching Wound Care Center Nurse 3 right LE Posterior -Ulcer Cleansing Soap and Water Soap and Water -Primary Dressing Covered/Secured with Dry Gauze bilat -Multi-Layered Wrap Application Multi-Layer Multi-Layer Multi-Layer Comp - Bilat ($ Comp - Bilat ($ Comp - Bilat ($ ) ) ) right #2 -Multi-Layered Wrap Application Unna Boot - Right ($) Right -Multi-Layered Wrap Application Unna Boot - Unna Boot - Right ($) Right ($) Treatment Response WC - Visit Discharge Discharge Condition Stable Stable Ambulatory Status Ambulatory,Cane Ambulatory,Cane Transportation Private Auto Private Auto Medication Reconcilliation completed & No No provided to patient/care provider Clinical Summary of Care Provided Yes Yes 03/11/24 15:25 Vital Signs Temperature (97.8 F-99.1 F) Temperature Source Pulse Rate (60-100) Pulse Location Respiratory Rate (12-18) Respiratory rate source Oxygen Delivery Method Blood Pressure (90/60-120/80) Blood Pressure Mean Source Position Blood Pressure Location Pain Scale: 0-10 Numeric Is Patient Pain Free? Yes Teaching: Wound Center Control Swelling with Leg Elevation -Person Taught Patient -Teaching Method Discussion -Response to teaching Verbalize Understanding Wound Care Center Nurse 3 right LE Posterior -Ulcer Cleansing Wound Cleanser -Primary Dressing Covered/Secured with bilat -Multi-Layered Wrap Application Multi-Layer Comp - Bilat ($ ) right #2 -Multi-Layered Wrap Application Right -Multi-Layered Wrap Application Unna Boot - Right ($) Treatment Response Procedure Tolerated Well WC - Visit Discharge Discharge Condition Stable Ambulatory Status Ambulatory Transportation Private Auto Medication Reconcilliation completed & No provided to patient/care provider Clinical Summary of Care Provided Yes Charges/Coding Visit Charges Office Visits / Consults: 19309 OV L3 Est 20min Assessment/Plan Assessment/Plan (1) Venous ulcer of right leg: CODE(S): I83.019 - Varicose veins of right lower extremity with ulcer of unspecified site; L97.919 - Non-pressure chronic ulcer of unspecified part of right lower leg with unspecified severity (2) Non-pressure chronic ulcer right lower leg, limited to breakdown skin: CODE(S): L97.911 - Non-pressure chronic ulcer of unspecified part of right lower leg limited to breakdown of skin (3) Cellulitis of right leg: CODE(S): L03.115 - Cellulitis of right lower limb (4) Venous stasis dermatitis of right lower extremity: CODE(S): I87.2 - Venous insufficiency (chronic) (peripheral) (5) Bilateral lower extremity edema: CODE(S): R60.0 - Localized edema (6) Lymphedema of both lower extremities: CODE(S): I89.0 - Lymphedema, not elsewhere classified (7) 1+ pitting edema: CODE(S): R60.9 - Edema, unspecified (8) Morbid obesity with BMI of 70 and over, adult: CODE(S): E66.01 - Morbid (severe) obesity due to excess calories; Z68.45 - Body mass index [BMI] 70 or greater, adult PLAN: Plan This is a 33-year-old morbidly obese female who presented with a large, clustered venous ulceration in the gaiter area of her distal right lower extremity. It was associated with venous stasis dermatitis. The ulceration has healed and dermatitic changes have now resolved. A lengthy discussion has been undertaken with the patient regarding the measures appropriate to the management of her venous disease. Weight loss has been recommended, though not likely to be of major impact in the short-term. Nonetheless, we have arranged consultation with a dietitian, who has met with the patient to provide nutritional recommendations and guidance. The patient has been advised to elevate her lower extremities as much as possible, which is to be implemented to heart level, or higher. She has been encouraged to sleep on a flat mattress at night. She did not have a bed at her apartment, and measures were undertaken to assist the patient in procuring a bed. A hospital bed has been delivered to her home, which now allows her to recline and elevate her legs as advised. The patient has been encouraged to elevate her lower extremities during both nighttime and daytime hours. Prolonged idle standing and sitting have been discouraged. Activity has been encouraged. The benefits of implementing the calf muscle pumps with activity have been explained. We are to continue compression to the right lower extremity by means of a multilayer Unna boot compression wrap. The patient is to return in 3 days for a replacement of the Unna boot compression wrap, and a regimen of twice weekly Unna boot applications. A 3M 2 layer compression wrap is to be applied to the left lower extremity, as compression is warranted despite a lack of skin changes. The patient has been measured for CircAid Velcro compression garments, as a means of adequate, long-term compression will be required by the patient. However, the patient's insurance has denied the benefit of CircAid Velcro compression garments. Therefore, standard graduated compression stockings of 20 to 30 mmHg are the alternative, and have been prescribed for the patient. The stockings have been ordered, and are awaited. Therefore, we will continue the twice weekly changes of the patient's compression wraps, and arrange for the patient to return in 2 weeks for reevaluation. It is anticipated that the patient will have received her compression stockings by that time, and discharge can be considered. The patient has done well, with healing of her right lower extremity ulceration and resolution of the dermatitic changes. Total time: 24 minutes
--- NOTE | 2024-03-14 09:09 | WC ---
PHOTO 03/11/24 RLE POST
[2024-03-14 11:23] VITALS: BP 144/60; PULSE 90; RESP 18; TEMP 31.6; BMI 78.2
[2024-03-18 15:31] VITALS: PULSE 86; RESP 18; TEMP 36.4; BMI 78.2
[2024-03-25 14:51] VITALS: RESP 18; TEMP 36.2; BMI 78.2
[2024-03-28 10:33] VITALS: BP 151/90; PULSE 84; RESP 18; TEMP 36.1; BMI 78.2
== END 2024-03-28 23:59 | disposition home or self-care (01) ==
LOC: WC 10:15
PROVIDERS: PCP Family Medicine; Referring Provider Family Medicine; Visit Provider Surgery
DX: I83.019 Varicose veins of right lower extremity with ulcer of unspecified site (principal); L97.911 Non-pressure chronic ulcer of unspecified part of right lower leg limited to breakdown of skin; E66.01 Morbid (severe) obesity due to excess calories; Z68.45 Body mass index [BMI] 70 or greater, adult; L03.115 Cellulitis of right lower limb; R60.0 Localized edema; I83.91 Asymptomatic varicose veins of right lower extremity; I87.2 Venous insufficiency (chronic) (peripheral); I89.0 Lymphedema, not elsewhere classified
CPT/HCPCS: 29581 ×2; 29580; 97597; 97803; 99213; G0463

== ENCOUNTER 2024-04-04 09:45 | Outpatient (RCR) | payer MEDICAID, SELFPAY ==
[2024-03-29 01:12] VITALS: BP 151/90; PULSE 84; RESP 18; TEMP 36.1; BMI 78.2
[2024-04-01 14:14] VITALS: BP 154/94; PULSE 78; RESP 18; TEMP 36.1; BMI 78.2
--- NOTE | 2024-04-02 18:45 | PCM.WC.HP ---
History of Present Illness Date of Service: 04/01/24 Chief Complaint: Venous ulceration, cellulitis, chronic venous insufficiency, venous stasis dermatitis, pitting edema, lymphedema - right lower extremity History of Wound: This is a morbidly obese 33-year-old female who presented with venous ulcerations and cellulitis involving her right lower extremity. The patient also suffers from chronic venous insufficiency, and venous stasis dermatitis in the right lower extremity. She also has a history of pitting edema and lymphedema in her lower extremities bilaterally. According to the patient, she had the ulceration and dermatitic changes in her right lower extremity for approximately 3 months. Only recently did she seek medical attention. She was seen and evaluated in the [facility] Emergency Department on January 10, 2024, where she was placed on Keflex 500 mg p.o. twice daily x 10 days in treatment for right lower extremity cellulitis. She has completed the course of antibiotics. The patient was evaluated at the [facility] on January 17, 2024, where she was referred for definitive management at the [facility]. At her visit to the [facility], betadine was applied to her right lower extremity ulceration, in addition to an Dwight wrap. The patient is morbidly obese, with a BMI of 78.2. 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 She lives alone, with very few resources. She did not have a bed, and was sleeping in a recliner. She stated that her recliner was broken, and that her legs cannot be elevated. The patient lives alone, and does not have family or friends to assist her with her daily needs. She denied a history of significant medical problems such as myocardial infarction, congestive heart failure, diabetes mellitus, pulmonary disease, renal disease, thyroid disease, and cerebrovascular disease. She denied prior surgical procedures. She does not use tobacco products. [facility] Medical History Non-pressure chronic ulcer right lower leg, limited to breakdown skin Morbid obesity with BMI of 70 and over, adult Venous stasis dermatitis of right lower extremity Venous ulcer of right leg Cellulitis of right leg 1+ pitting edema Lymphedema of both lower extremities Bilateral lower extremity edema Home Medications ?Medication ?Instructions ?Recorded ?Last Taken ?Type naproxen 500 mg tablet 500 mg PO BID PRN #20 tabs 12/08/18 Unknown Rx cephalexin 500 mg capsule 500 mg PO Q6 #40 CAPSULES 01/10/24 Unknown Rx Allergy/AdvReac Type Severity Reaction Status Date / Time No Known Allergies Allergy Verified 02/16/21 13:44 Surgical History no surgical history Social History Smoking Status: Never smoker Vital Signs Vital Signs Vital Signs: Weight Weight: 500 lb Body Mass Index (BMI) 78.2 Physical Exam Const alert, oriented x3, no apparent distress, no limitations and well nourished Constitutional Narrative: The patient is morbidly obese, with a BMI of 78.2 General Appearance: cooperative, comfortable, well kempt and well developed Orientation / Consciousness: awake, oriented to person, oriented to place and oriented to time Exam Limitations: no limitations HEENT normocephalic, head/scalp atraumatic and hearing grossly normal bilaterally Head and Scalp: normal to inspection, normocephalic and atraumatic Face and Sinus: normal facial exam Nose: external nose normal External Ear: external ears normal Eyes EOMs intact bilaterally General Eye: normal appearance of both eyes Neck full ROM Resp normal respiratory effort, normal air movement, no retractions and no use of accessory muscles Effort and Inspection: able to speak in complete sentences GI Inspection: pannus present Extremity no calf tenderness General Extremity: Negative for clubbing or cyanosis Skin Wound Narrative: Swelling, edema, and lymphedema are noted in the lower extremities bilaterally. The amount of swelling and edema appear to be diminishing bilaterally. Cellulitis in the right lower extremity has resolved. The venous stasis dermatitis in the right lower extremity has resolved as well. All ulcerations in the right lower extremity are now completely healed and epithelialized. There is no sign of infection or cellulitis. Neuro oriented x3, CN's II-XII intact bilaterally, moves all extremities, no focal motor deficits and no sensory deficits noted Sensorium / Orientation: awake, alert, oriented to person, oriented to place and oriented to time Cranial Nerves: CN normal except as noted Speech: speech normal Psych Appearance: grossly normal and appropriate Attitude: calm Activity / Motor Behavior: appropriate eye contact Speech: normal speech Mood & Affect: euthymic mood Thought Process: normal thought process Thought Content: normal thought content Attention / Concentration: attention grossly intact Debridement Note Debridement Note No debridement was completed: No debridement was completed today (There are no open wounds or ulcerations.) Post-Debridement Measurements and Additional Note: Post-Debridement Measurements/Treatment - Nurse 1 - General Ulcer Assessment Start: 04/01/24 14:14 Freq: Status: Active Protocol: LACEY Activity Type Activity Date Activity User E-sign Co-sign Detail Recorded Client Recorded Date Recorded By Document 04/01/24 14:14 BOOGIE [id number] 04/01/24 14:15 RB 04/01/24 14:14 WC - Today's Visit Information Type of service Follow-up Visit (Physician/F[employer]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 [employer]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 ) Arrival Mode Ambulatory Transfer Assistance None Patient Identification Verified (Name & Yes ) Patient Requires Transmission-Based No Precautions Height and Weight Body Mass Index (BMI) 78.2 BMI Classification Obese Vital Signs Temperature (97.8 F-99.1 F) 97 F L Temperature Source Temporal Pulse Rate (60-100) 78 Pulse Location Monitor Respiratory Rate (12-18) 18 Respiratory rate source Observation Blood Pressure (90/60-120/80) 154/94 H Blood Pressure Mean 114 Source Monitor Position Semi-Fowlers Blood Pressure Location Left Arm History Since Last Visit- (Skip if this is Patient's initial visit) Have you changed medications since your No last visit? Any new allergies or adverse reactions No Had a fall/change in ADL's that may No increase risk of falls Signs or symptoms of abuse and/or No neglect since last visit Have you been in the hospital since your No last visit? Has dressing in place as prescribed Yes Has compression in place as prescribed Yes Has offloadiing in place as prescribed No Experienced any changes in pain level or No management Pain Scale: 0-10 Numeric Is Patient Pain Free? Yes - Nurse 1 - General Ulcer Measurement Start: 04/01/24 14:14 Freq: Status: Active Protocol: Activity Type Activity Date Activity User E-sign Co-sign Detail Recorded Client Recorded Date Recorded By Document 04/01/24 14:14 [email or web address] [id number] 04/01/24 14:15 RB 04/01/24 14:14 Wound Center Nurse 1 Lower Limb Edema Present Yes Right Calf (cm) 53.5 Right Ankle (cm) 29.5 Left Calf (cm) 62 Left Ankle (cm) 30 - Nurse 2 - General Ulcer CM Notes Start: 04/01/24 14:14 Freq: Status: Active Protocol: Activity Type Activity Date Activity User E-sign Co-sign Detail Recorded Client Recorded Date Recorded By Document 04/01/24 14:34 DS [id number] 04/01/24 14:35 DS 04/01/24 14:34 Pain Scale: 0-10 Numeric Is Patient Pain Free? Yes WC - Nurse 3 - General Ulcer D/C NN Start: 04/01/24 14:14 Freq: Status: Active Protocol: Activity Type Activity Date Activity User E-sign Co-sign Detail Recorded Client Recorded Date Recorded By Document 04/01/24 15:05 RB [id number] 04/01/24 15:06 RB 04/01/24 15:05 Wound Care Center Nurse 3 bilat -Multi-Layered Wrap Application Multi-Layer Comp - Bilat ($ ) Right -Multi-Layered Wrap Application Unna Boot - Right ($) Treatment Response Procedure Tolerated Well Pain Scale: 0-10 Numeric Is Patient Pain Free? Yes WC - Visit Discharge Discharge Condition Stable Ambulatory Status Ambulatory,Cane Transportation Private Auto Medication Reconcilliation completed & No provided to patient/care provider Clinical Summary of Care Provided Yes Charges/Coding Visit Charges Office Visits / Consults: [id number] OV L3 Est 20min Assessment/Plan Assessment/Plan (1) Venous ulcer of right leg: CODE(S): I83.019 - Varicose veins of right lower extremity with ulcer of unspecified site; L97.919 - Non-pressure chronic ulcer of unspecified part of right lower leg with unspecified severity (2) Non-pressure chronic ulcer right lower leg, limited to breakdown skin: CODE(S): L97.911 - Non-pressure chronic ulcer of unspecified part of right lower leg limited to breakdown of skin (3) Cellulitis of right leg: CODE(S): L03.115 - Cellulitis of right lower limb (4) Venous stasis dermatitis of right lower extremity: CODE(S): I87.2 - Venous insufficiency (chronic) (peripheral) (5) Bilateral lower extremity edema: CODE(S): R60.0 - Localized edema (6) Lymphedema of both lower extremities: CODE(S): I89.0 - Lymphedema, not elsewhere classified (7) 1+ pitting edema: CODE(S): R60.9 - Edema, unspecified (8) Morbid obesity with BMI of 70 and over, adult: CODE(S): E66.01 - Morbid (severe) obesity due to excess calories; Z68.45 - Body mass index [BMI] 70 or greater, adult PLAN: Plan This is a 33-year-old morbidly obese female who presented with a large, clustered venous ulceration in the gaiter area of her distal right lower extremity. It was associated with venous stasis dermatitis. The ulceration has healed and dermatitic changes have now resolved. A lengthy discussion has been undertaken with the patient regarding the long-term measures appropriate to the management of her venous disease. Weight loss has been recommended and discussed in detail. A consultation with a dietitian has been provided during the course of the patient's management. She has been encouraged to seek medical attention to assist her with weight loss strategies. The patient has been advised to elevate her lower extremities as much as possible, which is to be implemented to heart level, or higher. She has been encouraged to sleep on a flat mattress at night. She did not have a bed at her apartment, and measures were undertaken to assist the patient in procuring a bed. A hospital bed has been delivered to her home, which now allows her to recline and elevate her legs as advised. The patient has been encouraged to elevate her lower extremities during both nighttime and daytime hours. Prolonged idle standing and sitting have been discouraged. Activity has been encouraged. The benefits of implementing the calf muscle pumps with activity have been explained. We are to continue compression to the right lower extremity by means of a multilayer Unna boot compression wrap. The patient is to return in 3 days for a replacement of the Unna boot compression wrap, and a regimen of twice weekly Unna boot applications. A 3M 2 layer compression wrap is to be applied to the left lower extremity, as compression is warranted despite a lack of skin changes. The patient has been measured for CircAid Velcro compression garments, as a means of adequate, long-term compression will be required by the patient. However, the patient's insurance has denied the benefit of CircAid Velcro compression garments. Therefore, standard graduated compression stockings of 20 to 30 mmHg are the alternative, and have been prescribed for the patient. The stockings have been ordered, and are awaited. It is expected that they will arrive within the next day or 2. The patient is to follow-up henceforth in 3 days, at which time our nursing staff will help the patient to don her new graduated compression stockings. If they appear to fit in satisfactory fashion, the patient will be discharged. She has been instructed to follow-up henceforth on an as-needed basis. She has been encouraged to continue the conservative main management measures which we have discussed in detail. Total time: 25 minutes
[2024-04-04 10:26] VITALS: BP 154/84; PULSE 87; RESP 18; TEMP 36.2; BMI 78.2
== END 2024-04-25 10:55 | disposition home or self-care (01) ==
LOC: WC 09:45
PROVIDERS: PCP Family Medicine; Referring Provider Family Medicine; Visit Provider Surgery
DX: I83.018 Varicose veins of right lower extremity with ulcer other part of lower leg (principal); L97.811 Non-pressure chronic ulcer of other part of right lower leg limited to breakdown of skin; E66.01 Morbid (severe) obesity due to excess calories; Z68.45 Body mass index [BMI] 70 or greater, adult; I89.0 Lymphedema, not elsewhere classified; I87.2 Venous insufficiency (chronic) (peripheral)
CPT/HCPCS: 29580; 29581; 99212; 99213; G0463